=== PATIENT | female | born 1940 | race Caucasian/White ===

== ENCOUNTER 2018-04-03 05:00 | Inpatient (IN) | payer MEDICARE, OTHER ==
[2018-04-03] MEDS ORDERED: hydrALAZINE 20 MG/ML VIAL SLOW IVP PRN (07:35)
[2018-04-03] MEDS ORDERED: Ondansetron PF 4 MG/2 ML Vial IVP PRN (07:35)
--- NOTE | 2018-04-03 08:34 | HP ---
HISTORY OF PRESENT ILLNESS: Agata Montiel is a 77-year-old female, who lives in [place]. She is transferred for [facility]. She states that for the 3 weeks, she has been having increased problems with GERD and yesterday had 5 to 6 bowel movements, had abdominal distention, presented to [facility]. There, she underwent evaluation and noted have normal PT and INR, normal urinalysis, normal troponin, essentially normal laboratories, normal renal function, normal lipase, and normal lactic acid. White count of 14, hemoglobin of 14. CAT scan revealed evidence of low-grade small bowel obstruction suggesting an intestinal hernia in the right perirectal region and large paxton hepatis node. Complex cystic mass in the left pelvis may be ovarian origin. Distended gallbladder with gallstones. The gallbladder was noted to be mildly distended with few calcified stones. The paxton hepatis node measured 1.5 to 2 cm. There was noted to be a few differential air-fluid levels noted in the mildly distended loops of proximal small bowel measuring up to 3.1 cm with dilated small bowel extending into the pelvis with relatively decompressed small bowel, posterior to the urinary bladder and vagina. The patient eventually stated a week ago, the patient underwent a bowel prep for colonoscopy and tolerated the bowel prep well. She presented for colonoscopy, but was noted to be in what sounds to be atrial fibrillation. She was sent to Dr. Lagunas's office in [place], where she underwent an echocardiogram, the results of which were unknown. She was started on Eliquis. She has a followup to see him in 2 weeks. She states there were plans to do a cardiac stress test. She denies chest pain. ALLERGIES: NONE. SOCIAL HISTORY: Tobacco, none. Alcohol, occasionally she will drink a beer. MEDICATIONS: 1. Fosamax. 2. Amlodipine 2.5 mg a day. 3. Eliquis 2.5 mg. 4. Aspirin 81 mg. 5. Carvedilol 25 mg. 6. Lisinopril 20 mg. 7. Amitiza 24 mcg capsule twice a day with meals. PAST SURGICAL HISTORY: Total abdominal hysterectomy without oophorectomy, appendectomy, foot surgery. Never has had a colonoscopy, but did have a prep one last week noting the above occurrences. PAST MEDICAL HISTORY: Atrial fibrillation, hypertension. Atrial fibrillation, recently diagnosed. Echocardiogram last week in [place], results unknown. To see Dr. Lagunas in the next couple of weeks. REVIEW OF SYSTEMS: Noncontributory. PHYSICAL EXAMINATION: HEENT: The patient has an NG tube in place. LUNGS: Clear to auscultation. CARDIAC: Regular rate and rhythm without murmur or gallop. ABDOMEN: Soft, distended. Slightly tympanitic, nontender. EXTREMITIES: Unremarkable. LABORATORY DATA: Laboratories from [place], urinalysis unremarkable. Glucose 171, BUN 20, creatinine 0.96, sodium 133, potassium 4.3, chloride 96, carbon dioxide 26, calcium 10.1, bilirubin 0.8, alkaline phosphatase 82, SGOT AST 29, SGPT ALT 28, and albumin 3.9. Lipase 7. Lactic acid 1.7. White count 14.8, hemoglobin 14.6, hematocrit 43.3, and platelet count 364,000. ASSESSMENT AND PLAN: 1. History and exam probably more consistent with gastroenteritis. The patient had diarrhea for the last week. She has been having increasing gastroesophageal reflux disease for the last 3 weeks. We would recommend repeat abdominal x-ray, small bowel follow-through, PPIs and further recommendation will be based on small bowel follow-through and clinical course. 2. Recent diagnosis of atrial fibrillation, on Eliquis, having had an echocardiogram last week in Dr. Lagunas's office in [place]. Results pending. She has an appointment to see him in 2 weeks. We would consult Cardiology this week for followup and echocardiogram results. 3. Hypertension. 4. Gastroesophageal reflux disease. 5. History urinary tract infections, has had 2 rounds of antibiotics for that. Repeat urine culture. Job ID: [id number]
--- NOTE | 2018-04-03 08:56 | ULT ---
PELVIC ULTRASOUND: DATE: 04/03/2018. HISTORY: Left adnexal mass seen on CT examination obtained at an outside institution. COMPARISON: None available. FINDINGS: The uterus is not visualized consistent with patient's reported history of a prior hysterectomy. Only transabdominal imaging was performed, and the right ovary is not visualized. There is an anechoic cystic-appearing structure seen within the left adnexal region measuring 6 cm x 4.3 cm x 4.3 cm. A normal-appearing left ovary is not visualized. The exact origin is uncertain, bu t this may be ovarian in origin. No free fluid is seen in the pelvis. A Rae catheter is present within a decompressed urinary bladder. IMPRESSION: 1. Limited examination as only transabdominal imaging was performed. However, there is a cystic-naheed earing structure within the left adnexal region measuring 6 cm in greatest dimensions. This may pote ntially be ovarian in origin. Direct comparison with the prior CT scan examination would be helpful. Gynecological consultation is also recommended. 2. Hysterectomy. 3. Nonvisualization of the right ovary. POS: JULIET
[2018-04-03] MEDS ORDERED: MD-Gastroview 120 ML BOT ONE (10:20)
[2018-04-03 11:49] VITALS: BMI 21.7
[2018-04-03] MEDS: Pantoprazole 40 MG VIAL IVP SCH (12:04)
[2018-04-03] MEDS ORDERED: Alendronate Sodium 70 mg Tablet PO SCH (12:30)
[2018-04-03] MEDS: Sodium Chloride 0.9% 1,000 ML IV SCH ×2 (12:53→17:48)
[2018-04-03] MEDS ORDERED: Carvedilol 25 MG TAB PO SCH (13:00)
[2018-04-03] MEDS ORDERED: Lisinopril 20 MG TAB PO SCH (13:00)
[2018-04-03] MEDS ORDERED: Amlodipine 5 MG TAB PO SCH (13:00)
--- NOTE | 2018-04-03 15:16 | RAD ---
2 VIEWS ABDOMEN: Date: 04/03/18 HISTORY: Evaluate for small bowel obstruction. COMPARISON: None. FINDINGS: There are multiple air-filled distended loops of small bowel with differential air fluid levels. No p neumoperitoneum. Nasogastric tube terminates in the left upper quadrant. There is evidence of right-sided pleural effusion with adjacent parenchymal changes. There appears to be contrast in the left and right intrarenal collecting systems. Correlate for recen t contrast administration. IMPRESSION: 1. Possible small bowel obstruction. 2. Evidence for recent contrast administration. Correlate clinically. POS: [facility]
--- NOTE | 2018-04-03 15:28 | RAD ---
SMALL BOWEL FOLLOW THROUGH: Date: 04/03/18 HISTORY: Small bowel obstruction. COMPARISON: Abdomen same date. FINDINGS: Patient was given contrast through the enteric tube. Contrast seen transiting throughout the small shankar wel and through the large bowel and into the rectum by 2.5 hours. IMPRESSION: No evidence for high grade obstruction. POS: VIBHA
--- NOTE | 2018-04-03 15:30 | DIS ---
DATE OF ADMISSION: 04/03/2018 DATE OF DISCHARGE: 04/03/2018 HISTORY: Agata Montiel admitted from [place] early this morning with a diagnosis of bowel obstruction. At this hospitalization, she was admitted, underwent small-bowel follow-through, Gastrografin traversing the colon within an hour and she had multiple bowel movements. NG tube was removed. She was transferred with a Rae catheter that also will be removed. Review of the patient's CAT scan from [place] reveals that she has right hepatic lobe metasteses, 2 large metastases. She has a nodule in her small-bowel mesentery. She has omental changes consistent with metastatic, probably gynecological disease. She has greater than 5 cm mass in her left ovary/adnexa. Pelvic ultrasound here did not reveal any changes. This mass in her left ovary is soft tissue, solid density. The patient of interest because of abdominal bloating and discomfort, generalized, underwent a screening colonoscopy bowel prep last week, but at the time she presented for colonoscopy, she was found to be in atrial fibrillation, although rate controlled. Her procedure was canceled and she saw Dr. Lagunas, Cardiology in [place]. Echocardiogram performed there, results are pending. Dr. Lagunas has been asked to see her at this hospitalization and report placed on the chart for transfer. The patient does not have any symptoms of cardiac disease. CA-19-9 and 125 levels are pending. HOME MEDICATIONS: 1. Fosamax. 2. Amlodipine. 3. Eliquis. 4. Aspirin. 5. Carvedilol. 6. Lisinopril. 7. Amitiza. PAST SURGICAL HISTORY: Total abdominal hysterectomy without oophorectomy, appendectomy, and foot surgery. She has never had a colonoscopy, canceled last week due to AFib, started on Eliquis, last dose yesterday, Tuesday morning or Tuesday night. PAST MEDICAL HISTORY: Newly diagnosed atrial fibrillation, hypertension. Echocardiogram last week at [place], results are pending. Dr. Lagunas, Cardiology consulted and results are pending. HOSPITAL COURSE: The patient admitted. Eliquis was held. Small-bowel follow-through was normal. NG tube removed. Rae removed. Full liquids ordered. ASSESSMENT AND PLAN: It is my feeling that she has may be partial bowel obstruction, although when she presented, she was having loose stools, although not voluminous. She was having bowel movements after small-bowel follow-through. We have advanced her diet. Transferred to Dr. Carmel Lino, [place], for partial bowel obstruction, gynecological metastatic malignancy, and evaluation. CEA level normal, but CA-125 and 19-9 pending. Laboratories from [place] will be included as well as CD-ROM of her CAT scan. Laboratories from [place] noting glucose of 171, BUN 20, creatinine 0.96, sodium 133, potassium 4.3, and carbon dioxide 26. Liver function tests normal. Lipase 7. Lactate 1.7. White count 14, hemoglobin 14, and platelet count 364,000. Of note is that she had gallstones seen on her CAT scan, these were probably incidental note, and apparently she is asymptomatic from this standpoint. Job ID: [id number]
--- NOTE | 2018-04-03 19:00 | CON ---
DATE OF CONSULTATION: 04/03/2018 REASON FOR CONSULTATION: Atrial fibrillation. HISTORY OF PRESENT ILLNESS: Ms. Montiel is a 77-year-old woman, who was evaluated in the office last week. She was seen as an urgent walk-in. She was scheduled for an EGD, colonoscopy by Dr. Richard Rabago. This was a routine screening. She was found to be in new onset atrial fibrillation. She was seen and evaluated. At that time, she had no current symptoms suggesting angina. Echo Doppler suggested normal LVEF. She was placed on Eliquis. She re-presented with abdominal discomfort. She was found to have a small-bowel obstruction and likely new diagnosis of neoplasm. PAST MEDICAL HISTORY: Hysterectomy. ALLERGIES: NONE. HOME MEDICATIONS: Include, 1. Eliquis. 2. Alendronate. 3. Amlodipine. 4. Lisinopril. 5. Coreg. REVIEW OF SYSTEMS: Ten-point review of systems reviewed and is otherwise negative. PHYSICAL EXAMINATION: GENERAL: Patient is a pleasant female, who is in no acute distress. The patient appears their stated age. VITAL SIGNS: Blood pressure 130/79, pulse ox 97, temp 97.7. NEUROLOGIC: The patient is alert and oriented x3 with no focal neurologic deficits. HEENT: Sclerae without icterus. Mouth has moist mucous membranes with normal pallor. NECK: No JVD. Carotid upstroke brisk. No bruits bilaterally. LUNGS: Clear to auscultation with unlabored respirations. BACK: No scoliosis or kyphosis. CARDIAC: Irregularly irregular. ABDOMEN: Soft, nontender, nondistended. No peritoneal signs present. No hepatosplenomegaly. No abnormal striae. EXTREMITIES: 2+ femoral and 2+ dorsalis pedis pulses. No cyanosis, clubbing, or edema. SKIN: No gross abnormalities. LABORATORY DATA: CEA 0.87. Other labs are pending. IMPRESSION: 1. Atrial fibrillation. 2. New diagnosis of neoplasm, unknown etiology. RECOMMENDATIONS: At this point, I would place her on outpatient medications. We will hold Eliquis and place the Lovenox until a decision is made on how to treat. At this point, she will be transferred to the [facility] in the [place]. Otherwise, I have no recommendations. Job ID: [id number]
[2018-04-03] MEDS: Carvedilol 25 MG TAB PO SCH (21:04)
[2018-04-03] MEDS: Lisinopril 20 MG TAB PO SCH (21:04)
[2018-04-04 05:40] LABS: #Lymphocytes 1.3 thou/uL (1.20-3.40); #Monocytes 0.9 thou/uL (0.11-0.59); #Neutrophils 9.5 thou/uL (1.40-6.50); %Basophils 0.1 % (0.0-1.0); %Eosinophils 0.3 % (0.0-10.0); %Lymphocytes 10.9 % (21.0-51.0); %Monocytes 7.8 % (0.0-10.0); %Neutrophils 80.9 % (42.0-75.0); Hemoglobin 12.8 g/dL (12.0-16.0); Mean Corpuscular HGB CONC 33.1 g/dL (32.0-36.0); Mean Corpuscular Hemoglobin 31.3 pg (27.0-31.0); Mean Corpuscular Volume 94.4 fL (78.0-98.0); Mean Platelet Volume 7.9 fL (7.4-10.4); Platelet Count 289 thou/uL (130-400); RBC Distribution Width 11.2 % (11.5-14.5); Red Blood Cell (RBC) Count 4.09 mill/uL (4.20-5.40); White Blood Cell (WBC) Count 11.8 thou/uL (4.8-10.8)
[2018-04-04 06:10] LABS: ALT (SGPT) 18 U/L (8-55); AST (SGOT) 19 U/L (5-34); Albumin 3.3 g/dL (3.4-4.8); Alkaline Phosphatase 61 U/L (40-150); Anion Gap 9 mmol/L (10-20); BUN (Urea Nitrogen) 33 mg/dL (9.8-20.1); Bilirubin, Total 0.6 mg/dL (0.2-1.2); Calc. Creatinine Clearance 52 mL/min (70-130); Carbon Dioxide 27 mmol/L (23-31); Chloride 106 mmol/L (98-107); Estimated GFR-MDRD 70; Globulin 2.7 g/dL (2.4-3.5); Glucose 96 mg/dL (83-110); Potassium 3.3 mmol/L (3.5-5.1); Sodium 139 mmol/L (136-145)
--- NOTE | 2018-04-04 08:01 | PDOC.CTH ---
Cardiology Progress Note - Subjective No changes overnight - Objective Vital Signs Temp Pulse Resp BP BP Pulse Ox 04/04/18 03:59 98.3 F 91 18 109/55 L 94 L 04/04/18 00:00 98.4 F 89 18 100/55 L 92 L 04/03/18 21:04 129/73 Weight 126 lb 4 oz 04/03/18 04/04/18 04/05/18 06:59 06:59 06:59 Intake Total 300 Output Total 200 Balance 100 - Physical Examination General/Neuro: alert & oriented x3, NAD Neck: no JVD present Heart: other: (irr) - Labs Result Diagrams: 04/04/18 04:46 04/04/18 04:46 - Assessment/Plan afib Abdominal neoplasm HTN Rate appears controlled. Lovenox for now until disposition on surgery or adjuvant treatment
[2018-04-04] MEDS ORDERED: Citrucel 500 MG TAB PO SCH (09:00)
[2018-04-04] MEDS ORDERED: Enoxaparin Sodium 60 MG/0.6 ML SYRINGE SC SCH ×3 (09:00→21:00)
[2018-04-04] MEDS ORDERED: Amlodipine 5 MG TAB PO SCH (09:00)
[2018-04-04] MEDS ORDERED: Calcium Carbonate + Vit D 1 TAB PO SCH (09:00)
[2018-04-04] MEDS ORDERED: Polyethylene Glycol 3350 17 GM Packet PO SCH (09:00)
[2018-04-04] MEDS: Lisinopril 20 MG TAB PO SCH (09:09)
[2018-04-04] MEDS: Carvedilol 25 MG TAB PO SCH (09:09)
[2018-04-04] MEDS: Pantoprazole 40 MG VIAL IVP SCH (09:13)
[2018-04-04 15:50] VITALS: BP 119/71; TEMP 97.8
--- NOTE | 2018-04-05 15:28 | EKG ---
Test Reason : Blood Pressure : / mmHG Vent. Rate : 091 BPM Atrial Rate : 085 BPM P-R Int : 000 ms QRS Dur : 068 ms QT Int : 356 ms P-R-T Axes : 000 022 024 degrees QTc Int : 437 ms Atrial fibrillation Low voltage QRS Cannot rule out Anterior infarct , age undetermined Abnormal ECG Confirmed by RICARDO LISA, ROBYN ([id number]), communications editor VASQUEZ MAR ([id number]) on 04/05/2018 3:28:11 PM Referred By: Confirmed By:ROBYN SILVA MD
== END 2018-04-04 16:19 | disposition short-term general hospital (02) | DRG 755 ==
LOC: ERS 05:00 → 2SE 10:20 → 2NO 04-04 14:12
PROVIDERS: ADMIT Specialist; ATTEND Specialist
DX: C57.4 Malignant neoplasm of uterine adnexa, unspecified (principal); C78.7 Secondary malignant neoplasm of liver and intrahepatic bile duct; C78.6 Secondary malignant neoplasm of retroperitoneum and peritoneum; K21.9 Gastro-esophageal reflux disease without esophagitis; I48.91 Unspecified atrial fibrillation; I10 Essential (primary) hypertension; Z87.440 Personal history of urinary (tract) infections; Z90.710 Acquired absence of both cervix and uterus; Z79.01 Long term (current) use of anticoagulants; Z79.82 Long term (current) use of aspirin
CPT/HCPCS: 36415; 74019; 74250; 76856; 80053; 82378; 85025; 86301; 86304; 93005; 93976; C9113; J1650

== ENCOUNTER 2018-04-27 07:28 | Outpatient (CLI) | payer MEDICARE, OTHER ==
--- NOTE | 2018-04-27 09:26 | CT ---
CT CHEST AND ABDOMEN AND PELVIS WITH CONTRAST: Multiple axial tomograms were obtained through the chest, abdomen, and pelvis with IV enhancement. INDICATION: Primary peritoneal adenocarcinoma recently diagnosed. Exam performed for staging. COMPARISON: There are no comparison studies. FINDINGS: CT CHEST: There is a large right pleural effusion and small left pleural effusion. There is compressive atelec tasis at the right middle lobe and right lower lobe. No evidence of mediastinal or hilar mass. The portions of both lungs appear clear. The bony thorax appears unremarkable. IMPRESSION: Large right pleural effusion with compressive atelectasis of the right lung as described. Small left pleural effusion. CT ABDOMEN AND PELVIS: There is small to moderate volume ascites with fluid seen surrounding the liver and spleen and radiat ing down the colonic gutters. There is evidence of loculated ascitic fluid just posterior to the ant erior abdominal wall in the mid and lower abdomen which appears extraperitoneal. There are focal heterogeneous lesions involving the liver consistent with liver metastasis. At least 3 lesions are identified in the inferior right lobe, each measuring 2-3 cm. There are other smaller lesions apparent. The spleen and pancreas are unremarkable. There is mild dilatation of proximal mid small bowel loops in the left abdomen. The more distal smal l bowel loops appear normal caliber. Scattered stool throughout the colon. Diverticulosis of the si gmoid. Images through the pelvis reveal evidence of hysterectomy. There is a cystic mass in the left pelvis measuring 5 cm diameter. There is a solid heterogeneous component along the inferior margin of this mass possibly represent the ovarian neoplasm. There is a 2nd circumscribed cystic mass in the lower pelvis to the right of midline abutting the ant erior wall of the rectum which measures 4.3 cm in the axial plane. There is a linear fluid-filled st ructure connecting to this loculated collection adjacent to the cecum. The patient reportedly is sta tus post appendectomy. This most likely represents a loculated fluid collection. There is a tiny focus of free air seen which is in the deep pelvis to the left of midline in the spac e of Retzius adjacent to the anterior wall of the bladder which is extraperitoneal in location. There is retroperitoneal adenopathy with multiple paraaortic nodes measuring 1-1.5 cm. Osseous structures unremarkable. IMPRESSION: 1. Small volume ascites. 2. Loculated fluid along the anterior abdominal wall which appears to be extraperitoneal. There is a tiny free pocket of gas which is extraperitoneal in the space of Retzius in the lower pelvis to the left of midline. Has there been recent procedure to this location? 3. A partially cystic complex mass in the left pelvis measuring up to 5 cm suggesting ovarian neopla sm. 4. A loculated fluid density collection in the deep pelvis to the right of midline as described abov e. 5. Numerous liver lesions consistent with liver metastasis. 6. Retroperitoneal adenopathy 7. Mild dilatation proximal small bowel POS: [facility]
== END 2018-04-27 07:29 | disposition home or self-care (01) ==
LOC: BICCT 07:28
PROVIDERS: ATTEND Internal Medicine Hematology & Oncology
DX: C48.1 Malignant neoplasm of specified parts of peritoneum (principal); J98.11 Atelectasis; J90 Pleural effusion, not elsewhere classified; R18.8 Other ascites; R59.0 Localized enlarged lymph nodes; K76.9 Liver disease, unspecified; N94.9 Unspecified condition associated with female genital organs and menstrual cycle
CPT/HCPCS: 71260; 74177

== ENCOUNTER 2018-04-27 12:47 | Inpatient (IN) | payer MEDICARE, OTHER ==
[2018-04-27] MEDS ORDERED: Nitroglycerin 2% Ointment 1 INCH/1 GM Packet ONE (13:04)
[2018-04-27] MEDS ORDERED: Furosemide 40 MG/4 ML VIAL ONE (13:04)
--- NOTE | 2018-04-27 13:25 | RAD ---
PORTABLE CHEST 1 VIEW: DATE: 04/27/2018. TIME: 1:04 p.m. HISTORY: Dyspnea. FINDINGS/IMPRESSION: There is a small left and a large right pleural effusion. The heart size is borderline. There is ev idence of old granulomatous disease. No pneumothoraces are seen. POS: OFF
[2018-04-27 14:12] LABS: #Lymphocytes 0.6 thou/uL (1.20-3.40); #Monocytes 0.5 thou/uL (0.11-0.59); #Neutrophils 7.7 thou/uL (1.40-6.50); %Basophils 0.5 % (0.0-1.0); %Eosinophils 0.1 % (0.0-10.0); %Lymphocytes 7.1 % (21.0-51.0); %Monocytes 5.9 % (0.0-10.0); %Neutrophils 86.4 % (42.0-75.0); Hemoglobin 12.6 g/dL (12.0-16.0); Mean Corpuscular HGB CONC 31.8 g/dL (32.0-36.0); Mean Corpuscular Hemoglobin 29.1 pg (27.0-31.0); Mean Corpuscular Volume 91.5 fL (78.0-98.0); Mean Platelet Volume 7.2 fL (7.4-10.4); Platelet Count 434 thou/uL (130-400); RBC Distribution Width 11.6 % (11.5-14.5); Red Blood Cell (RBC) Count 4.33 mill/uL (4.20-5.40); White Blood Cell (WBC) Count 8.9 thou/uL (4.8-10.8)
[2018-04-27 14:14] LABS: ALT (SGPT) 21 U/L (8-55); AST (SGOT) 25 U/L (5-34); Albumin 3.1 g/dL (3.4-4.8); Alkaline Phosphatase 81 U/L (40-150); Anion Gap 15 mmol/L (10-20); BUN (Urea Nitrogen) 22 mg/dL (9.8-20.1); Bilirubin, Total 0.6 mg/dL (0.2-1.2); CK (CPK) 51 U/L (29-168); Calc. Creatinine Clearance 0 mL/min (70-130); Calcium 8.9 mg/dL (7.8-10.44); Carbon Dioxide 26 mmol/L (23-31); Chloride 95 mmol/L (98-107); Estimated GFR-MDRD 82; Globulin 3.3 g/dL (2.4-3.5); Glucose 136 mg/dL (83-110); Lipase 5 U/L (8-78); Potassium 3.5 mmol/L (3.5-5.1); Protein, Total 6.4 g/dL (6.0-8.3); Sodium 132 mmol/L (136-145)
[2018-04-27 14:18] LABS: Bilirubin Negative (Negative); Blood, Urine Small (Negative); Clarity CLEAR (Clear); Glucose, Urine (Dipstick) Negative (Negative); Leukocyte Negative (Negative); Nitrite Negative (Negative); Protein, Urine (Dipstick) Trace mg/dL (Neg-Trace); Urobilinogen 0.2 mg/dL (0.2-1.0); pH, Urine 5.5 (5.0-9.0)
[2018-04-27 14:20] LABS: Bacteria/HPF None Seen HPF (None Seen); Pathc Cast-AUWi Flag 2.32 (0-2.49); Squamous Epithelial 0-3 HPF (0-3)
[2018-04-27 14:34] LABS: Crystals/HPF RARE CA OXALATE HPF (Negative)
[2018-04-27 14:35] LABS: Hyaline Casts/LPF 0-3 HYALINE CAST LPF (0-3 Hyaline); Renal Epithelial None Seen HPF (0-3); Transitional Epithelial NONE SEEN HPF (0-3)
[2018-04-27 14:42] LABS: Specific Gravity, Urine Greater than 1.060 (1.002-1.036)
[2018-04-27] MEDS ORDERED: Acetaminophen 325 MG TAB PO PRN (16:04)
[2018-04-27] MEDS ORDERED: Ondansetron PF 4 MG/2 ML Vial IVP PRN (16:04)
[2018-04-27] MEDS ORDERED: Bisacodyl 5 MG TAB PO PRN (16:04)
--- NOTE | 2018-04-27 16:12 | PDOC.EVN ---
Event Note - Event Note Event Note: H&P dictated [id number]
[2018-04-27 17:06] LABS: Troponin I 0.017 ng/mL (< 0.028)
[2018-04-27 20:00] LABS: Troponin I 0.024 ng/mL (< 0.028)
[2018-04-27] MEDS: Apixaban 2.5 MG TAB PO SCH (20:23)
[2018-04-27] MEDS: Carvedilol 25 MG TAB PO SCH (20:23)
--- NOTE | 2018-04-27 22:51 | HP ---
ADMITTING COMPLAINT: Sent from [employer]'s office. HISTORY OF PRESENT ILLNESS: This is a 77-year-old female, who was recently diagnosed with small-bowel obstruction and during surgical procedure was found to have an ovarian mass, was discharged on 04/10 and has had an evaluation by General Surgery, Oncology, and Cardiology. In the meantime, the patient was supposed to get a CT scan of her abdomen contrast and pelvis today and had a followup appointment with her [employer] analyst. The patient's Cardiology PA apparently found that the patient was found to have significant volume overload and sent the patient to the hospital. In the ER, the patient currently states that she does feel short of breath and is unable to perform her activities, also notes that she has had bilateral lower swellings of her legs, which have been worsening in the last week. The patient states that, otherwise, she has no other complaints or issues. ALLERGIES: TO HYDROCHLOROTHIAZIDE, NITROFURANTOIN, AND TRIAMTERENE. MEDICATIONS: See MAR. FAMILY HISTORY: Noncontributory. SOCIAL HISTORY: Nondrinker and nonsmoker. PAST MEDICAL HISTORY: Small-bowel obstruction, hypertension, and atrial fibrillation. REVIEW OF SYSTEMS: All systems reviewed. Pertinent positives in HPI, otherwise negative. PHYSICAL EXAMINATION: VITAL SIGNS: Blood pressure is 91/75, respiratory rate of 18, temperature is 98, and heart rate irregularly irregular at 110. GENERAL: The patient appears in mild discomfort. HEENT: Pupils are equal, round, and reactive to light and accommodation. Oral cavity moist and pink. Extraocular muscles intact. NECK: Supple, nontender, mobile. Thyroid appreciated. PULMONARY: Decreased breath sounds in bilateral lower lung li. Moderate respiratory distress. No increase in AP diameter. CARDIOVASCULAR: Irregularly irregular rhythm. 2/6 systolic ejection murmur appreciated. ABDOMEN: Distended. Mild fluid wave noted. Positive bowel sounds. EXTREMITIES: 2+ peripheral pulses noted. Bilateral lower extremity 1+ edema noted. NEUROLOGIC: Cranial nerves 2 through 12 intact. No loss of motor or sensory function. LABORATORY DATA: CBC within normal limits. BMP shows sodium of 132, chloride of 95, and glucose elevated at 136. Brain natriuretic peptide at 422, otherwise normal. Urinalysis positive for trace ketones and trace blood. ASSESSMENT: 1. Volume overload. 2. Ovarian carcinoma. 3. Atrial fibrillation. 4. Congestive heart failure. PLAN: 1. At this point in time, we will admit the patient to observation and consult Cardiology. 2. The patient stated that she had an echocardiogram performed at her [employer] analyst's office. We will refrain from ordering a repeat one as the recent one was done, unclear if the patient actually has a right-sided heart failure or if she has volume overload secondary to another etiology. We will obtain urinalysis and liver function test to rule out any other possibilities of causing heart failure. UA does not show positivity for protein, and liver function test appears to be intact. Thus, this is likely volume overload of a cardiogenic nature. We will await Cardiology input. 3. We will hold on for any diuretics as the patient's blood pressure is significantly low. 4. Continue Eliquis and continue Coreg; however, we will stop lisinopril and Norvasc, edema may also be a side effect from the Norvasc. 5. At this point in time, if the patient is stable in a.m., edema resolves, and the symptom then improves clinically, can possibly be discharged with diuretic outpatient and to follow up with her outpatient PCP. Case and plan discussed with the patient and family at length. They understand and agree with this plan. Job ID: [id number]
[2018-04-28 06:08] LABS: #Lymphocytes 1.1 thou/uL (1.20-3.40); #Monocytes 0.8 thou/uL (0.11-0.59); #Neutrophils 7.3 thou/uL (1.40-6.50); %Basophils 0.2 % (0.0-1.0); %Eosinophils 0.4 % (0.0-10.0); %Lymphocytes 12.1 % (21.0-51.0); %Monocytes 8.3 % (0.0-10.0); Hemoglobin 11.4 g/dL (12.0-16.0); Mean Corpuscular HGB CONC 32.3 g/dL (32.0-36.0); Mean Corpuscular Hemoglobin 29.7 pg (27.0-31.0); Mean Corpuscular Volume 92.1 fL (78.0-98.0); Mean Platelet Volume 7.5 fL (7.4-10.4); Platelet Count 410 thou/uL (130-400); RBC Distribution Width 11.7 % (11.5-14.5); Red Blood Cell (RBC) Count 3.82 mill/uL (4.20-5.40); White Blood Cell (WBC) Count 9.2 thou/uL (4.8-10.8)
[2018-04-28 06:27] LABS: Anion Gap 14 mmol/L (10-20); BUN (Urea Nitrogen) 22 mg/dL (9.8-20.1); Calc. Creatinine Clearance 68 mL/min (70-130); Calcium 8.6 mg/dL (7.8-10.44); Carbon Dioxide 26 mmol/L (23-31); Chloride 98 mmol/L (98-107); Estimated GFR-MDRD 88; Glucose 101 mg/dL (83-110); Potassium 3.4 mmol/L (3.5-5.1); Sodium 135 mmol/L (136-145)
[2018-04-28] MEDS: Carvedilol 25 MG TAB PO SCH ×2 (09:15→22:23)
[2018-04-28] MEDS: Apixaban 2.5 MG TAB PO SCH ×2 (09:16→13:15)
[2018-04-28] MEDS ORDERED: Carvedilol 25 MG TAB PO SCH ×2 (12:59→13:15)
--- NOTE | 2018-04-28 13:02 | PDOC.PN ---
- Subjective Encounter Start Date: 04/28/18 Encounter Start Time: 13:00 Patient seen and examined, states she still feels a bit SOB and has not had any changes in her symptoms, at bedside, all questions answered. - Objective Vital Signs & Weight: Vital Signs (12 hours) Temp Pulse Resp BP Pulse Ox 04/28/18 11:57 97.9 F 100 14 98/61 96 04/28/18 08:00 97.7 F 100 16 112/66 97 04/28/18 04:22 97.8 F 110 H 22 H 140/77 94 L 04/28/18 02:46 96 Weight Weight 135 lb 14.4 oz I&O: 04/27/18 04/28/18 04/29/18 06:59 06:59 06:59 Intake Total 0 50 Output Total 450 500 Balance -450 -450 Result Diagrams: 04/28/18 05:08 04/28/18 05:08 Phys Exam - Physical Examination Constitutional: NAD HEENT: PERRLA, moist MMs, sclera anicteric Neck: no nodes, no JVD, supple Respiratory: no wheezing, no rales, no rhonchi decreased breath sounds B/L Lower lung li Cardiovascular: no rub, irregular 2/6 CARLOS Gastrointestinal: soft, non-tender, no distention Musculoskeletal: pulses present, edema present (1+ pitting edema B/L LE) Neurological: non-focal, normal sensation Dx/Plan (1) SOB (shortness of breath) Code(s): R06.02 - SHORTNESS OF BREATH Status: Acute (2) Diastolic CHF Code(s): I50.30 - UNSPECIFIED DIASTOLIC (CONGESTIVE) HEART FAILURE Status: Acute (3) Volume overload Code(s): E87.70 - FLUID OVERLOAD, UNSPECIFIED Status: Acute (4) Pulmonary congestion Code(s): R09.89 - OTH SYMPTOMS AND SIGNS INVOLVING THE CIRC AND RESP SYSTEMS Status: Acute (5) Ovarian cancer Status: Acute - Plan * cardio evaluation pending, out patient Echo read, EF normal, however, patient has diastolic dysfunction as well as MR/TR and right ventricular dysfunction * will start lasix for now, will monitor BP closely * labs in AM * patient requiring O2 via NC for respiration thus will start diuretic, will hold if SBP < 100mmHg * no other changes in plan of care * will await subspecialists input * change to inpatient * case and plan d/w patient and at length, they understand and agree with this plan.
[2018-04-28] MEDS ORDERED: Furosemide 40 MG/4 ML VIAL ONE (13:09)
[2018-04-28] MEDS: Furosemide 20 MG/2 ML VIAL SLOW IVP SCH (13:14)
[2018-04-28] MEDS ORDERED: Potassium Chloride 20 MEQ TAB PO SCH ×2 (13:15→14:00)
[2018-04-28] MEDS ORDERED: Furosemide 20 MG/2 ML VIAL SLOW IVP SCH (14:00)
--- NOTE | 2018-04-28 20:49 | CON ---
DATE OF CONSULTATION: TYPE OF CONSULTATION: Cardiology consultation. PRIMARY CARE DOCTOR: Dr. Jill Espinoza. PRIMARY [employer] SALES REPRESENTATIVE: Dr. Lagunas. REASON FOR CARDIOLOGY CONSULTATION: Fluid overload. HISTORY OF PRESENT ILLNESS: Ms. Montiel is a very pleasant 77-year-old female with a significant history of hypertension and chronic atrial fibrillation, and ovarian carcinoma with status post resection three weeks ago. The patient has seen Dr. Lagunas for chronic atrial fibrillation. The patient was doing well. Last time the patient was seen by the Dr. Lagunas in March of 2018. Over the three weeks, she has gained 15 pounds and worsening of shortness of breath and worsening of the edema in the bilateral lower extremities. She follows up with Dr. Lagunas's PA, Kel, and she was recommended to present to the emergency department for further evaluation and treatment. In the ER, the patient received Lasix 40 mg IV push, which improved her breathing and she states her leg is less swelled today; however, according to the patient's family member, she is still having shortness of breath especially when she talks. Prior to this event, she never had any chest pain or discomfort in her chest, fluttering or palpitation in her chest, dizziness, lightheadedness, or any other cardiac complaints. The patient had an echocardiogram done on March 30, 2018, which shows EF 50% to 55%, difficulty to evaluate for diastolic dysfunction due to the atrial fibrillation and mitral valve regurgitation, mild tricuspid regurgitation, and moderate left atrial enlargement. PAST MEDICAL HISTORY: 1. Ovarian carcinoma and resection three weeks ago. 2. Hypertension. 3. Chronic atrial fibrillation with Eliquis 2.5 mg twice a day. PAST SURGICAL HISTORY: Ovarian carcinoma resection [place] weeks ago at [place]; appendectomy; and hysterectomy. FAMILY HISTORY: The patient's brother and sister has medical history of cardiovascular disease. The patient's daughter is taking some medication for tachycardia. SOCIAL HISTORY: She is living with her . Prior to the ovarian cancer resection, the patient was active. She used to walk around the house every day without any cardiac complaints. She denies smoking, EtOH, or illicit drug abuse. She drinks two cups of coffee a day. ALLERGIES: SHE STATES NO KNOWN DRUG ALLERGIES. HOME MEDICATIONS: 1. Eliquis 2.5 mg twice a day. 2. Carvedilol 25 mg twice a day. 3. Calcium with vitamin D 1 tablet once a day. 4. Lisinopril 20 mg twice a day. 5. MiraLAX 17 g daily. REVIEW OF SYSTEMS: A 12-point review of system negative unless otherwise mentioned in the HPI or below. The patient had intermittent pfvl-cn-bydpttys joint achiness and discomfort secondary to the arthritis and the patient has an intermittent acid reflex. PHYSICAL EXAMINATION: VITAL SIGNS: Blood pressure 103/63, pulse 93, O2 saturations 96% with 2 L nasal cannula, respiratory rate 18, and temperature 97.9. GENERAL: The patient is alert and oriented x4. The patient is not in acute distress except for mild shortness of breath when she talk or movement. HEENT: Head, normocephalic and atraumatic. Eyes, extraocular muscle movement intact. ENT and mouth, oral and nasal mucosa are moist without lesion. NECK: Supple. Normal range of motion. No JVD. PULMONARY: Clear to auscultation bilaterally, but very diminished at the bilateral bases. CARDIOVASCULAR: Irregularly irregular. No S3 or S4. No murmurs, heaves, or thrill noted. 1+ pulses in bilateral lower extremities and 2+ in upper extremities. She has 2 to 3+ pitting edema in the lower extremities. Carotid pulses are present without bruit or thrill. ABDOMEN: Soft and nontender. Mo masses palpated. There are healed incision in the abdomen. Bowel sounds are positive. MUSCULOSKELETAL: The patient able to move all extremities. The patient denies any claudication. NEUROLOGIC: The patient is alert and oriented x4. Nonfocal. PSYCHIATRIC: The patient's mood is appropriate. LABORATORY DATA: WBC 9.2, hemoglobin 11.4, hematocrit 35.2, and platelets 410. Sodium 135, potassium 3.4, BUN 22, creatinine 0.65. BNP 422. Troponin is negative. AST 25, ALT 21. DIAGNOSTIC DATA: The patient's chest x-ray revealed small bilateral pleural effusion and evidence of old granulomatous disease. CT scan of the chest and abdomen shows small volume of ascites and partial cystic complex mass in the left pelvis suggesting of ovarian neoplasm. Numerous liver lesions consistent with liver metastases and retroperitoneal adenopathy and mild dilatation of proximal small bowel. ASSESSMENT AND PLAN: 1. Acute on diastolic heart failure. The patient's breathing has improved after the patient received one dose of Lasix IV. We would like to give her Lasix 20 mg IV push if her blood pressure is stable. 2. Chronic atrial fibrillation. The patient's heart rate is stable at this moment with Coreg, betablocker, and Eliquis 2.5 mg twice a day. We would like to continue to monitor. 3. Hypertension. Blood pressure tends to be hypotensive at this moment. We would like to decrease the carvedilol to 6.25 mg twice a day. Discontinue nitroglycerin paste and at this moment, if the patient's blood pressure tolerates, we would like to start the KORIN inhibitor for this patient. The patient's creatinine is stable at this moment. 4. Ovarian carcinoma. We would like to defer to the primary care doctor and Oncology Service. 5. Hypokalemia. The patient's potassium level was 3.4 since the patient is going to start receiving Lasix IV. We would like to start potassium 20 mEq every day. Thank you very much for allowing the Cardiology Service to participate in the care of this patient. We will follow along the patient's care team and make further evaluation as appropriate. Job ID: [id number]
[2018-04-28] MEDS ORDERED: Carvedilol 6.25 MG TAB PO SCH (21:00)
--- NOTE | 2018-04-28 22:28 | CON ---
DATE OF CONSULTATION: 04/28/2018 TYPE OF CONSULTATION: Cardiology INDICATION FOR CONSULTATION: A 77-year-old female with atrial fibrillation with rapid ventricular response and history of new onset congestive heart failure with a history of ovarian cancer, recently had small bowel resection due to an obstruction. She was at that time found to have ovarian cancer, which will need to be debulked with chemotherapy and then thus scheduled surgery in the future. She was admitted due to increased shortness of breath and edema. HISTORY OF PRESENT ILLNESS: This is a very unfortunate 77-year-old female, who has recently undergone resection of a small-bowel obstruction, was also found to have an ovarian mass, which was severely malignant, starting to undergo chemotherapy. She was admitted after she had been discharged from the hospital with lower extremity edema and shortness of breath. She has been having increasing shortness of breath, which she did not have in the future and this appears to be acute congestive heart failure, but may just be due to volume overload. She did have a normal echocardiogram I believe in the past with reasonable ejection fraction, but at this time, obviously has some degree of heart failure. Her BNP was not significantly elevated, however, was abnormal with BNP of 422. Her cardiac enzymes are negative for evidence of myocardial infarction. She denied any chest pain, but have shortness of breath. PAST MEDICAL HISTORY: Please refer to the notes dictated by my nurse practitioner, Diane Blunt. SOCIAL HISTORY: Please refer to the notes dictated by my nurse practitioner, Diane Blunt. FAMILY HISTORY: Please refer to the notes dictated by my nurse practitioner, Diane Blunt. REVIEW OF SYSTEMS: Please refer to the notes dictated by my nurse practitioner, Diane Blunt. MEDICATIONS: Please refer to the notes dictated by my nurse practitioner, Diane Blunt. PHYSICAL EXAMINATION: GENERAL: Reveals a well-developed, well-nourished female, who does appear to be ill. She is short of breath during my evaluation. VITAL SIGNS: Blood pressure is 103/63, heart rate is 93 to 100 which shows atrial fibrillation. She is afebrile. Respiratory rate is 14 to 18, O2 saturation is 96%. HEENT: Shows head to be normocephalic and atraumatic. Carotid pulses are present. I did not hear any bruits. Her chest had decreased breath sounds bilaterally. CARDIOVASCULAR: Reveals an irregularly irregular rhythm. I do not hear any gross murmurs at this time. ABDOMEN: Has evidence of recent surgery. She is somewhat full, is not tympanic, but appears to be dull to percussion and most likely appears to be ascites. Positive bowel sounds are present. EXTREMITIES: Showed 2+ lower extremity edema. Pedal pulses are difficult to palpate but are present. NEUROLOGIC: The patient appears to be intact. LABORATORY DATA: Again shows no evidence of myocardial infarction. BNP was 422, potassium was 3.4, sodium was 135. Hemoglobin was 11.4, WBC of 9.2, and platelet count of 410,000. IMPRESSION: Atrial fibrillation with rapid ventricular response, which may have provoked some degree of congestive heart failure with lower extremity edema. We will need to control the heart rate with her atrial fibrillation. Hope in the future, we will convert her back to sinus rhythm with a main thing at this time will be to control the heart rate. I will obtain a repeat echocardiogram at this time to see whether or not she has had any change in her left ventricular systolic function, which may be due to tachycardia induced cardiomyopathy or whether she may be just simply volume overloaded. This may be chronic atrial fibrillation. I am not sure whether she has had atrial fibrillation in the past or not, but she has been on Eliquis in the past, I believe this is not a new finding, but congestive heart failure is a new finding in this lady. She will need to undergo further diuresis and when she is more stable, then can be discharged to home on oral diuretics as well as continuing on her Eliquis which she has been on in the past and she will continue the Coreg at this time as well as lisinopril or KORIN inhibitor and other medications as needed for hypertension. ASSESSMENT AND PLAN: 1. Atrial fibrillation with rapid ventricular response as noted. 2. Ovarian cancer, which will be dealt with by the Oncology Service. She most likely will undergo chemotherapy and then likely surgical correction in the future or with oophorectomy. 3. History of hypertension. This is stable at this time. We will be more than happy to continue to follow the patient with you during this hospital course. Job ID: [id number]
--- NOTE | 2018-04-29 01:52 | HP ---
HISTORY OF PRESENT ILLNESS: Agata Montiel is a 77-year-old female, lives in [place]. She has serous cystadenocarcinoma, ovarian, abdominal cavity undergoing recent laparotomy by Dr. Carmel Lino in the [facility] onc[facility]. She prior to that was hospitalized at [facility], presented with a bowel obstruction, is seen by me. CAT scan of small-bowel follow-through revealed resolution of her bowel obstruction. Her white count returned to normal. She was transferred to Dr. Lino when her tumor markers suggested an ovarian primary with her ascites and omental tumor masses. She on arrival to the [facility] seem to be stable, but Dr. Carmel Lino operated on her for tissue diagnosis and found the terminal ileum to be ischemic, requiring ileocecectomy, anastomosis, and biopsies. She has been referred back for chemotherapy. I saw her in the office yesterday to arrange MediPort placement, which is scheduled for May 01 at 7:30 a.m. On admission, she is started on Eliquis, but this has been discontinued and can be resumed the day after surgery Tuesday. The patient is still slightly dyspneic and being diuresed and being moved from observation to inpatient status. I would recommend that if she is able to go home this , she can go home and that outpatient surgery is arranged for Tuesday. She should be n.p.o. after midnight Tuesday night except for medications with a sip of water. She should avoid anticoagulation between now and the time of her surgery. She should report the outpatient surgery at 6 a.m. On the other hand, if the patient is an inpatient and required hospitalization for medical problems, she does have orders placed for consent for MediPort, IV sedation, local anesthesia, and n.p.o. after midnight Hibiclens shower Tuesday and if we placed a MediPort on Tuesday, if she is stable from medical standpoint, she can go home postoperatively. This will be a medical assessment as to whether her MediPort is placed as an outpatient or inpatient based on her medical needs this weekend. Dr. Monte, who is covering this weekend, please, however, call me if there are any questions regarding her care. The patient has been instructed that if she is discharged home, she should report to the operating room outpatient surgery registration at 0600 on Tuesday. Job ID: [id number]
[2018-04-29] MEDS: Furosemide 20 MG/2 ML VIAL SLOW IVP SCH ×2 (06:35→16:44)
[2018-04-29] MEDS: Carvedilol 25 MG TAB PO SCH ×2 (10:54→21:34)
[2018-04-29] MEDS: Potassium Chloride 20 MEQ TAB PO SCH (10:54)
--- NOTE | 2018-04-29 13:23 | PDOC.PN ---
- Subjective Encounter Start Date: 04/29/18 Encounter Start Time: 13:22 Patient seen and examined, states she's feeling better from yesterday, all questions answered. - Objective Vital Signs & Weight: Vital Signs (12 hours) Temp Pulse Resp BP BP Pulse Ox 04/29/18 07:26 98.3 F 101 H 18 118/61 95 04/29/18 03:28 99.1 F 88 20 130/77 95 Weight Admit Weight 135 lb 14.4 oz Weight 133 lb 6.4 oz I&O: 04/28/18 04/29/18 04/30/18 06:59 06:59 06:59 Intake Total 0 450 300 Output Total 450 1100 500 Balance -450 -650 -200 Result Diagrams: 04/28/18 05:08 04/28/18 05:08 Phys Exam - Physical Examination Constitutional: NAD HEENT: PERRLA, moist MMs, sclera anicteric Neck: no nodes, no JVD, supple Respiratory: no wheezing, no rales, no rhonchi Cardiovascular: RRR, no significant murmur, no rub Gastrointestinal: soft, non-tender, no distention, positive bowel sounds Musculoskeletal: pulses present, edema present (trace) Dx/Plan (1) SOB (shortness of breath) Code(s): R06.02 - SHORTNESS OF BREATH Status: Acute (2) Diastolic CHF Code(s): I50.30 - UNSPECIFIED DIASTOLIC (CONGESTIVE) HEART FAILURE Status: Acute (3) Volume overload Code(s): E87.70 - FLUID OVERLOAD, UNSPECIFIED Status: Acute (4) Pulmonary congestion Code(s): R09.89 - OTH SYMPTOMS AND SIGNS INVOLVING THE CIRC AND RESP SYSTEMS Status: Acute (5) Ovarian cancer Status: Acute - Plan * cont with IV diuretics for now * DC plans in AM if patient is doing well, will give PO diuretics at point in time of discharge * will need to FU with oncology in 3-5 days post discharge
--- NOTE | 2018-04-29 22:46 | PDOC.CTH ---
Cardiology Progress Note - Subjective The pt seen and examined. No overnight events. No cardiac complaints. She cont. having CHAPMAN with small movement. - Objective Vital Signs Temp Pulse Resp BP Pulse Ox 04/29/18 16:44 93 134/66 97 04/29/18 13:15 97.9 F 92 20 120/74 98 Admit Weight 135 lb 14.4 oz Weight 133 lb 6.4 oz 04/28/18 04/29/18 04/30/18 06:59 06:59 06:59 Intake Total 0 450 300 Output Total 450 1100 1400 Balance -450 -650 -1100 - Physical Examination General/Neuro: alert & oriented x3 Neck: no JVD present Lungs: other: (diminished at bases ) Heart: other: (irregular ) Abdomen: soft Extremities: other: (No edema) - Telemetry Telemetry Rhythm: AFib - Labs Result Diagrams: 04/28/18 05:08 04/30/18 04:28 Troponin/CKMB Troponin I 0.010 ng/mL (< 0.028) 04/28/18 05:03 - Assessment/Plan 1. Acute on chronic diastolic HF - breathing is slightly better today. On Lasix IV BID and Coreg. Will start Lisinopril 5mg qd from tomorrow AM. 2. Chronic Afib - HR well controlled with Coreg. Brayden is on hold for now for Mediport placement on Tuesday. 3. Ovarian cancer - will need to FU with oncology in 3-5 days post discharge 4. HTN - stable MAR reviewed Pt. seen and eval. by me. I agree with the A/P by the TRAINING AND DEVELOPMENT HEAD. Chest : decr BS on right > 1/[address] up.. IRRR, + edema. Review of Systems - Review of Systems Constitutional: reports: weakness EENTM: reports: no symptoms reported Respiratory: reports: no symptoms reported Cardiac (ROS): reports: no symptoms reported ABD/GI: reports: no symptoms reported : reports: no symptoms reported Musculoskeletal: reports: no symptoms reported Skin: reports: no symptoms reported
[2018-04-30] MEDS: Furosemide 20 MG/2 ML VIAL SLOW IVP SCH (05:21)
[2018-04-30 05:47] LABS: Anion Gap 11 mmol/L (10-20); BUN (Urea Nitrogen) 25 mg/dL (9.8-20.1); Calc. Creatinine Clearance 63 mL/min (70-130); Calcium 8.3 mg/dL (7.8-10.44); Carbon Dioxide 32 mmol/L (23-31); Chloride 98 mmol/L (98-107); Estimated GFR-MDRD 82; Glucose 111 mg/dL (83-110); Sodium 138 mmol/L (136-145)
[2018-04-30] MEDS: Potassium Chloride 20 MEQ TAB PO SCH (08:32)
[2018-04-30] MEDS: Lisinopril 5 MG TAB PO SCH (08:32)
[2018-04-30] MEDS: Carvedilol 25 MG TAB PO SCH ×2 (08:32→20:34)
--- NOTE | 2018-04-30 11:06 | PDOC.PN ---
- Subjective Encounter Start Date: 04/30/18 Encounter Start Time: 11:05 Patient seen and examined, edema significantly improved, family at bedside, no other issues overnight, all questions answered. - Objective Vital Signs & Weight: Vital Signs (12 hours) Temp Pulse Resp BP BP BP Pulse Ox 04/30/18 08:32 104 H 128/79 04/30/18 08:30 98 04/30/18 08:23 97.5 F L 104 H 20 128/79 98 04/30/18 03:30 98.8 F 91 24 H 137/83 97 Weight Admit Weight 135 lb 14.4 oz Weight 126 lb 12.8 oz I&O: 04/29/18 04/30/18 05/01/18 06:59 06:59 06:59 Intake Total 450 650 Output Total 1100 1750 Balance -650 -1100 Result Diagrams: 04/28/18 05:08 04/30/18 04:28 Phys Exam - Physical Examination Constitutional: NAD HEENT: PERRLA, moist MMs, sclera anicteric Neck: no nodes, no JVD, supple Respiratory: no wheezing, no rales, no rhonchi inspiratory crackles B/L lower lobes Cardiovascular: RRR, no significant murmur, no rub Gastrointestinal: soft, non-tender, no distention, positive bowel sounds Musculoskeletal: pulses present, edema present (trace) Dx/Plan (1) SOB (shortness of breath) Code(s): R06.02 - SHORTNESS OF BREATH Status: Acute (2) Diastolic CHF Code(s): I50.30 - UNSPECIFIED DIASTOLIC (CONGESTIVE) HEART FAILURE Status: Acute (3) Volume overload Code(s): E87.70 - FLUID OVERLOAD, UNSPECIFIED Status: Acute (4) Pulmonary congestion Code(s): R09.89 - OTH SYMPTOMS AND SIGNS INVOLVING THE CIRC AND RESP SYSTEMS Status: Acute (5) Ovarian cancer Status: Acute - Plan * xanax prn * port placement in AM * no other changes in plan of care * can likely DC 24-48hrs post chemoport placement once cleared by surgery team * change diuretics to PO * case and plan d/w patient and family at length, they understand and agree with this plan
[2018-04-30] MEDS: Furosemide 80 MG TAB PO SCH (15:06)
--- NOTE | 2018-04-30 15:33 | PDOC.CTH ---
Cardiology Progress Note - Subjective The pt seen and examined. No overnight events. No cardiac complaints. She breathes slightly better today. - Objective Vital Signs Temp Pulse Resp BP BP BP Pulse Ox 04/30/18 15:03 98.1 F 90 18 122/74 97 04/30/18 12:30 97.4 F L 101 H 16 120/72 98 04/30/18 08:32 104 H 128/79 04/30/18 08:30 98 04/30/18 08:23 97.5 F L 104 H 20 128/79 98 Admit Weight 135 lb 14.4 oz Weight 126 lb 12.8 oz 04/29/18 04/30/18 05/01/18 06:59 06:59 06:59 Intake Total 450 650 Output Total 1100 1750 Balance -650 -1100 - Physical Examination General/Neuro: alert & oriented x3 Neck: no JVD present Lungs: other: (coarses and diminished at bases) Heart: other: (irregular) Abdomen: soft Extremities: other: (1-2+ pitting BLE edema) - Telemetry Telemetry Rhythm: AFib 80s - Labs Result Diagrams: 04/28/18 05:08 04/30/18 04:28 Troponin/CKMB Troponin I 0.010 ng/mL (< 0.028) 04/28/18 05:03 - Assessment/Plan 1. Acute on chronic diastolic HF - breathing is slightly better today. On Coreg , KORIN and Lasix IV BID, which was changed to PO. 2. Chronic Afib - HR well controlled with Coreg. Gregoryis is on hold for now for Mediport placement on Tuesday. 3. Ovarian cancer - will need to FU with oncology in 3-5 days post discharge 4. HTN - stable 5. Lt pleural effusion - another CXR tomorrow. cont. diuretic. MAR reviewed * Echo on 04/29/2018 showed EF 65-70%, mildly ERV, mild-mod dilated LA, mild ERA , mild-mod MR, mod-severe TR, mild NJ, and Lt pleural effusion. * Port placement in AM Pt. seen and eval. by me. I agree with the A/P by the CORNER BRACE BLOCK MACHINE OPERATOR. Chest : decreased on left and right . IRRR, + edema. Review of Systems - Review of Systems Constitutional: reports: no symptoms reported EENTM: reports: no symptoms reported Respiratory: reports: see HPI Cardiac (ROS): reports: no symptoms reported ABD/GI: reports: no symptoms reported : reports: no symptoms reported Musculoskeletal: reports: no symptoms reported
[2018-04-30] MEDS ORDERED: Potassium Chloride 20 MEQ TAB PO SCH (16:00)
[2018-04-30] MEDS: ALPRAZolam 0.25 MG TAB PO PRN (20:34)
[2018-05-01] MEDS ORDERED: Bupivacaine HCl 0.5%/Epinephrine 1:200,000/PF 30 ml Vial ONE (06:38)
[2018-05-01] MEDS ORDERED: Lidocaine 2% PF 5 ML VIAL ONE (06:38)
[2018-05-01] MEDS ORDERED: CEFAZOLIN 2 GM/50 ML BAG ONE (06:43)
[2018-05-01] MEDS ORDERED: Fentanyl 100 MCG/2 ML VIAL ONE (07:00)
[2018-05-01] MEDS ORDERED: Midazolam HCl 2 mg/2 ml Vial ONE (07:00)
[2018-05-01] MEDS ORDERED: KETAMINE 100 MG/ML (5ML VIAL) ONE (07:01)
[2018-05-01] MEDS ORDERED: traMADol HCl 50 MG TAB PO PRN ×2 (07:26)
[2018-05-01] MEDS ORDERED: Ibuprofen 600 MG TAB PO PRN (07:26)
[2018-05-01] MEDS ORDERED: Promethazine HCl 25 MG/ML VIAL IM PRN (07:54)
[2018-05-01] MEDS ORDERED: Promethazine HCl 25 MG/ML VIAL SLOW IVP PRN (07:54)
[2018-05-01] MEDS ORDERED: Ondansetron HCl/PF 4 MG/2 ML Vial IVP PRN (07:54)
--- NOTE | 2018-05-01 09:17 | RAD ---
SINGLE VIEW OF THE CHEST: Comparison: 04-27-18 History: Central line placement. Respiratory failure. FINDINGS: Single view of the chest shows an enlarged but stable cardiomediastinal silhouette with atherosclerot ic calcifications in the aorta. There is a left subclavian Mediport with its tip in the superior vena cava. No pneumothorax is seen. There are bilateral pleural effusions, right greater than left. IMPRESSION: 1. Status post Mediport placement without evidence of complication. 2. Bilateral pleural effusions. POS: [facility]
[2018-05-01] MEDS: Carvedilol 25 MG TAB PO SCH ×2 (10:38→22:17)
[2018-05-01] MEDS: Furosemide 80 MG TAB PO SCH ×2 (10:38→19:31)
[2018-05-01] MEDS: Potassium Chloride 20 MEQ TAB PO SCH (10:39)
[2018-05-01] MEDS: Lisinopril 5 MG TAB PO SCH (10:39)
[2018-05-01] MEDS: Polyethylene Glycol 3350 17 GM Packet PO SCH (10:41)
[2018-05-01] MEDS ORDERED: PROPOFOL 200 MG/20 ML VIAL ONE (13:52)
[2018-05-01] MEDS ORDERED: PHENYLEPHRINE-NS 100 MCG/ML 10 ML SYRINGE ONE (13:52)
--- NOTE | 2018-05-01 14:03 | PDOC.PN ---
- Subjective Encounter Start Date: 05/01/18 Encounter Start Time: 09:00 Pt seen for followup re: volume overload. Says she feels better. - Objective MAR Reviewed: Yes Vital Signs & Weight: Vital Signs (12 hours) Temp Pulse Resp BP BP Pulse Ox 05/01/18 10:39 106 H 107/66 05/01/18 03:21 98.6 F 87 18 124/72 95 Weight Admit Weight 135 lb 14.4 oz Weight 126 lb 12.8 oz I&O: 04/30/18 05/01/18 05/02/18 06:59 06:59 06:59 Intake Total 650 Output Total 1750 1200 Balance -1100 -1200 Result Diagrams: 04/28/18 05:08 04/30/18 04:28 EKG Reviewed by me: Yes (tele: jerrell hadley) Phys Exam - Physical Examination Constitutional: NAD HEENT: moist MMs Neck: supple Respiratory: clear to auscultation bilateral Cardiovascular: irregular Gastrointestinal: soft Neurological: moves all 4 limbs Psychiatric: normal affect Dx/Plan (1) Acute on chronic diastolic congestive heart failure, NYHA class 3 Code(s): I50.33 - ACUTE ON CHRONIC DIASTOLIC (CONGESTIVE) HEART FAILURE Status : Acute Comment: continue diuretics, beta cristin, ACEI (2) Volume overload Code(s): E87.70 - FLUID OVERLOAD, UNSPECIFIED Status: Acute Comment: continue diuretics (3) Chronic atrial fibrillation Code(s): I48.2 - CHRONIC ATRIAL FIBRILLATION Status: Chronic Comment: rate- controlled, Eliquis on hold (4) Ovarian cancer Status: Chronic Comment: for mediPort placement today - Plan * . Review of Systems - Review of Systems Respiratory: negative: Cough, Shortness of Breath, SOB with Excertion, Pleuritic Pain, Wheezing Cardiovascular: negative: chest pain, palpitations, orthopnea, paroxysmal nocturnal dyspnea, edema, light headedness - Medications/Allergies Allergies/Adverse Reactions: Allergies Allergy/AdvReac Type Severity Reaction Status Date / Time hydrochlorothiazide Allergy Verified 04/27/18 18:17 [From Maxzide] Nitrofuran Analogues Allergy Verified 04/27/18 18:17 triamterene [From Maxzide] Allergy Verified 04/27/18 18:17 Medications: Current Medications Acetaminophen (Tylenol) 1,000 mg PO Q6H PRN PRN Reason: Moderate to Severe Pain (6-10) Alprazolam (Xanax) 0.25 mg PO TIDPRN PRN PRN Reason: Anxiety Last Admin: 04/30/18 20:34 Dose: 0.25 mg Bisacodyl (Dulcolax) 10 mg PO DAILYPRN PRN PRN Reason: Constipation Carvedilol (Coreg) 25 mg PO BID [facility] Last Admin: 05/01/18 10:38 Dose: 25 mg Furosemide (Lasix) 80 mg PO 0900,1400 [facility] Last Admin: 05/01/18 10:38 Dose: 80 mg Ibuprofen (Motrin) 600 mg PO Q6H PRN PRN Reason: Pain Lisinopril (Zestril) 5 mg PO DAILY [facility] Last Admin: 05/01/18 10:39 Dose: 5 mg Ondansetron HCl (Zofran) 4 mg IVP Q6H PRN PRN Reason: Nausea/Vomiting Polyethylene Glycol (Miralax) 17 gm PO DAILY [facility] Last Admin: 05/01/18 10:41 Dose: Not Given Potassium Chloride (K-Dur) 40 meq PO QAM-WM [facility] Last Admin: 05/01/18 10:39 Dose: 40 meq Sodium Chloride (Flush - Normal Saline) 10 ml IVF Q12HR PRN PRN Reason: Saline Flush Last Admin: 04/30/18 08:35 Dose: 10 ml Tramadol HCl (Ultram) 50 mg PO Q6H PRN PRN Reason: Mild Pain (1-3) Tramadol HCl (Ultram) 100 mg PO Q6H PRN PRN Reason: Moderate Pain (4-6)
--- NOTE | 2018-05-01 15:31 | OP ---
DATE OF PROCEDURE: 05/01/2018 PREOPERATIVE DIAGNOSES: Ovarian cancer, serous cystadenocarcinoma, needle chemotherapy, antineoplastic access. POSTOPERATIVE DIAGNOSES: Ovarian cancer, serous cystadenocarcinoma, needle chemotherapy, antineoplastic access. PROCEDURE: Left subclavian vein low-profile MediPort. ANESTHESIA: TIVA, local of 0.5% Marcaine with epinephrine 30 mL mixed with 2% Xylocaine 10 mL, fluoroscopy used. DESCRIPTION OF PROCEDURE: The patient was taken to the operating room where under intravenous sedation, neck and chest were prepped with ChloraPrep and draped in routine fashion. Local anesthetic mixture was infiltrated into the skin and subcutaneous tissue about the operative site. Trocar catheter to cannulated the subclavian vein in the infraclavicular approach of the left chest, obtained a good return of venous blood, J-wire threaded, trocar catheter was removed. The skin was incised and enlarged sharply and the subcutaneous pocket was created with sharp and blunt dissection using cautery for hemostasis. Dilator and Peel-Away sheath was placed over the J-wire in the superior vena cava, and dilator and J-wire were removed. The catheter was placed through the Peel-Away sheath. Peel-Away sheath was removed. Fluoroscopically, catheter tip was placed in optimal position in the superior vena cava. Catheter was tailored to length and connected to the MediPort, placed in the subcutaneous pocket and secured with 2 sutures of 3-0 Prolene and the subcutaneous tissue was approximated with 3-0 Monocryl, skin with subdermal 4-0 Monocryl, and [place] glue applied. With Carrion needle, accessed the MediPort and obtained a good return of venous blood and flushed with heparinized saline solution. Fluoroscopy revealed good line and port placement. Job ID: [id number]
[2018-05-01] MEDS: Acetaminophen 500 MG TAB PO PRN (16:06)
--- NOTE | 2018-05-01 17:39 | PDOC.CTH ---
Cardiology Progress Note - Subjective no complaints post mediport - Objective Vital Signs Temp Pulse Resp BP BP Pulse Ox 05/01/18 10:39 106 H 107/66 05/01/18 08:35 96.9 F L 91 20 136/73 96 Admit Weight 135 lb 14.4 oz Weight 126 lb 12.8 oz 04/30/18 05/01/18 05/02/18 06:59 06:59 06:59 Intake Total 650 Output Total 1750 1200 Balance -1100 -1200 - Physical Examination General/Neuro: alert & oriented x3, NAD Neck: no JVD present Lungs: unlabored respirations Heart: other: (irr) Abdomen: NT/ND, soft Extremities: + femoral B - Telemetry Telemetry Rhythm: afib - Labs Result Diagrams: 04/28/18 05:08 04/30/18 04:28 Troponin/CKMB Troponin I 0.010 ng/mL (< 0.028) 04/28/18 05:03 - Assessment/Plan afib ovarian cancer recent mediport placement Pt HR in the 90's to 100's Resume eliquis when ok with surgeon Add CCB if HR remains elevated
[2018-05-01] MEDS ORDERED: Clopidogrel Bisulfate 75 MG TAB ONE (17:59)
[2018-05-01] MEDS: ALPRAZolam 0.25 MG TAB PO PRN (22:16)
[2018-05-02] MEDS: Lisinopril 5 MG TAB PO SCH (08:45)
[2018-05-02] MEDS: Polyethylene Glycol 3350 17 GM Packet PO SCH (08:46)
[2018-05-02] MEDS: Carvedilol 25 MG TAB PO SCH ×2 (08:46→21:45)
[2018-05-02] MEDS: Furosemide 80 MG TAB PO SCH ×2 (08:46→14:35)
[2018-05-02] MEDS: Potassium Chloride 20 MEQ TAB PO SCH (08:46)
[2018-05-02 11:21] VITALS: BMI 21.7
[2018-05-02] MEDS: Acetaminophen 500 MG TAB PO PRN (13:05)
--- NOTE | 2018-05-02 14:01 | PDOC.PN ---
- Subjective Encounter Start Date: 05/02/18 Encounter Start Time: 09:40 Pt seen for followup re: CHF exacerbation. Still has SOBOE. - Objective MAR Reviewed: Yes Vital Signs & Weight: Vital Signs (12 hours) Temp Pulse Resp BP Pulse Ox 05/02/18 12:00 98.3 F 92 20 124/81 95 05/02/18 08:46 94 L 05/02/18 08:00 97.7 F 98 18 131/74 94 L 05/02/18 04:33 99.2 F 100 22 H 124/68 93 L Weight Admit Weight 135 lb 14.4 oz Weight 125 lb 3.2 oz I&O: 05/01/18 05/02/18 05/03/18 06:59 06:59 06:59 Intake Total 905 Output Total 1200 600 Balance -1200 305 Result Diagrams: 04/28/18 05:08 04/30/18 04:28 EKG Reviewed by me: Yes (Tele; a. fib) Phys Exam - Physical Examination Constitutional: NAD HEENT: moist MMs Neck: supple José Miguel crackles Cardiovascular: irregular Gastrointestinal: soft Neurological: moves all 4 limbs Psychiatric: normal affect Dx/Plan (1) Acute on chronic diastolic congestive heart failure, NYHA class 3 Code(s): I50.33 - ACUTE ON CHRONIC DIASTOLIC (CONGESTIVE) HEART FAILURE Status : Acute Comment: continue diuretics, beta cristin, ACEI. Still needing supplemental oxygen (not on home oxygen) (2) Volume overload Code(s): E87.70 - FLUID OVERLOAD, UNSPECIFIED Status: Acute Comment: continue furosemide (3) Chronic atrial fibrillation Code(s): I48.2 - CHRONIC ATRIAL FIBRILLATION Status: Chronic Comment: will resume Eliquis when cleared by surgery (4) Ovarian cancer Status: Chronic Comment: mediPort placed yesterday - Plan * . Review of Systems - Review of Systems Respiratory: SOB with Excertion. negative: Cough, Shortness of Breath, Pleuritic Pain, Wheezing Cardiovascular: negative: chest pain, palpitations, orthopnea, paroxysmal nocturnal dyspnea, edema, light headedness - Medications/Allergies Allergies/Adverse Reactions: Allergies Allergy/AdvReac Type Severity Reaction Status Date / Time hydrochlorothiazide Allergy Verified 04/27/18 18:17 [From Maxzide] Nitrofuran Analogues Allergy Verified 04/27/18 18:17 triamterene [From Maxzide] Allergy Verified 04/27/18 18:17 Medications: Current Medications Acetaminophen (Tylenol) 1,000 mg PO Q6H PRN PRN Reason: Moderate to Severe Pain (6-10) Last Admin: 05/02/18 13:05 Dose: 1,000 mg Alprazolam (Xanax) 0.25 mg PO TIDPRN PRN PRN Reason: Anxiety Last Admin: 05/01/18 22:16 Dose: 0.25 mg Bisacodyl (Dulcolax) 10 mg PO DAILYPRN PRN PRN Reason: Constipation Carvedilol (Coreg) 25 mg PO BID [facility] Last Admin: 05/02/18 08:46 Dose: 25 mg Furosemide (Lasix) 80 mg PO 0900,1400 [facility] Last Admin: 05/02/18 08:46 Dose: 80 mg Ibuprofen (Motrin) 600 mg PO Q6H PRN PRN Reason: Pain Lisinopril (Zestril) 5 mg PO DAILY [facility] Last Admin: 05/02/18 08:45 Dose: 5 mg Ondansetron HCl (Zofran) 4 mg IVP Q6H PRN PRN Reason: Nausea/Vomiting Polyethylene Glycol (Miralax) 17 gm PO DAILY [facility] Last Admin: 05/02/18 08:46 Dose: Not Given Potassium Chloride (K-Dur) 40 meq PO QAM-WM [facility] Last Admin: 05/02/18 08:46 Dose: 40 meq Sodium Chloride (Flush - Normal Saline) 10 ml IVF Q12HR PRN PRN Reason: Saline Flush Last Admin: 04/30/18 08:35 Dose: 10 ml Tramadol HCl (Ultram) 50 mg PO Q6H PRN PRN Reason: Mild Pain (1-3) Tramadol HCl (Ultram) 100 mg PO Q6H PRN PRN Reason: Moderate Pain (4-6)
--- NOTE | 2018-05-02 14:10 | PDOC.CTH ---
Cardiology Progress Note - Subjective Feels stronger today. No specific complaints. HR in the 90's to 100's - Objective Vital Signs Temp Pulse Resp BP Pulse Ox 05/02/18 12:00 98.3 F 92 20 124/81 95 05/02/18 08:46 94 L 05/02/18 08:00 97.7 F 98 18 131/74 94 L 05/02/18 04:33 99.2 F 100 22 H 124/68 93 L Admit Weight 135 lb 14.4 oz Weight 125 lb 3.2 oz 05/01/18 05/02/18 05/03/18 06:59 06:59 06:59 Intake Total 905 Output Total 1200 600 Balance -1200 305 - Physical Examination General/Neuro: alert & oriented x3, NAD Neck: no JVD present Lungs: unlabored respirations Heart: other: (irr) Abdomen: no HSM, NT/ND, soft Extremities: + femoral B - Telemetry Telemetry Rhythm: afib - Labs Result Diagrams: 04/28/18 05:08 04/30/18 04:28 Troponin/CKMB Troponin I 0.010 ng/mL (< 0.028) 04/28/18 05:03 - Assessment/Plan afib ovarian cancer recent mediport placement Added digoxin Continue coreg Restart ACT when ok with surgery Home soon.
[2018-05-02] MEDS ORDERED: Digoxin 0.5 MG/2 ML AMP SLOW IVP SCH (14:15)
[2018-05-02] MEDS ORDERED: Potassium Chloride 20 MEQ TAB PO SCH (15:00)
[2018-05-02] MEDS: ALPRAZolam 0.25 MG TAB PO PRN (21:45)
[2018-05-02] MEDS: Apixaban 2.5 MG TAB PO SCH (21:45)
[2018-05-03] MEDS ORDERED: Digoxin 0.125 MG TAB PO SCH (09:00)
[2018-05-03] MEDS: Potassium Chloride 20 MEQ TAB PO SCH (09:44)
[2018-05-03] MEDS: Apixaban 2.5 MG TAB PO SCH (09:44)
[2018-05-03] MEDS: Carvedilol 25 MG TAB PO SCH (09:44)
[2018-05-03] MEDS: Furosemide 80 MG TAB PO SCH ×2 (09:45→14:19)
[2018-05-03] MEDS: Lisinopril 5 MG TAB PO SCH (09:45)
[2018-05-03] MEDS: Polyethylene Glycol 3350 17 GM Packet PO SCH ×2 (09:47→09:51)
--- NOTE | 2018-05-03 12:59 | PQF ---
EVANGELINA CHANDLER PAMELA ALLEN [id number] CLINICAL DOCUMENTATION IMPROVEMENT CLARIFICATION FORM: ICD-10 Updated PLEASE DO AN ADDENDUM TO THE PROGRESS NOTE WITH ANY DOCUMENTATION UPDATES OR ADDITIONS AND CARRY THROUGH TO DC SUMMARY. THANK YOU. DATE: 05/03/2018 ATTN: DR. HA Please exercise your independent, professional judgment in responding to the clarification form. Clinical indicators are provided on the bottom of this form for your review Please check appropriate box(s): [ ] Acute Respiratory Failure: [ ] with Hypoxia[ ] with Hypercapnia [ ] Acute On Chronic Respiratory Failure: [ ] with Hypoxia [ ] with Hypercapnia [ ] Other diagnosis [ ] Unable to determine For continuity of documentation, please document condition throughout progress notes and discharge summary. Thank You. CLINICAL INDICATORS - SIGNS / SYMPTOMS / LABS Feeling short of breath, especially with walking. Unable to to perform her activities and notes that she has had bilateral lower swelling of her legs which have been worsening in the last week. Newly diagnosed Diastolic CHF, this Admission Decreased oxygen saturation (<90% room air or < 95% on oxygen). GVP=253.4 Cyanosis/Hypoxia Rapid respirations >20 periodically throughout this hospitalization Pulmonary vascular congestion and large right pleural effusion CXR 3+ bilateral lower extremity pitting edema. RISK FACTORS Newly diagnosed ovarian cancer x 3mo Newly diagnosed Diastolic CHF this Admission Newly diagnosed Atrial Fibrillation this Admission TREATMENTS: Oxygen Monitoring of oxygenation status Diuresis Cardiology consult and ECHO ADDITIONAL INFORMATION: *Sent from Cardiology Clinic for fluid overload. 1/3-H&P: Decreased breath sounds in bilateral lower lung li. Moderate respiratory distress. Mild fluid wave noted on abdominal exam. 1/4: Requiring O2 via NC for respiration thus will start diuretic. 05/02: Still needing supplemental oxygen (not on home oxygen) Thank you, Airam (This form is maintained as a part of the permanent medical record) 2015 [employer]. All Rights Reserved Airam Love RN, CDIS [email or web address] [phone] [email or web address]
[2018-05-03 14:57] VITALS: TEMP 98.3
[2018-05-03 20:41] VITALS: BP 117/71
--- NOTE | 2018-05-03 22:51 | DIS ---
DATE OF ADMISSION: 04/28/2018 DATE OF DISCHARGE: 05/03/2018 PRIMARY CARE PROVIDER: Dr. Trey Espinoza. DISCHARGE DIAGNOSES: 1. Acute on chronic diastolic congestive heart failure, NYHA class III, ACC/AHA class C. 2. Volume overload. 3. Hypokalemia. 4. Acute hypoxic respiratory failure. CONDITION OF PATIENT ON THE DAY OF DISCHARGE: Stable. I assessed Ms. Montiel on the day of discharge. She denies any chest pain. Vital signs are stable. S1 and S2 are heard, regular. Lungs are clear to auscultation bilaterally. CONSULTATION DURING THIS HOSPITALIZATION: 1. Cardiology, Cari Mijares MD. 2. General Surgery, Jon Thomas MD. HOSPITAL COURSE: Ms. Montiel is a pleasant 77-year-old lady, who was admitted to [facility] on April 27, 2018, for significant volume overload. Please refer to Dr. De Souza's history and physical note dated April 27, 2018, for further details. She was started on diuretics. A 2D echocardiogram showed left ventricular ejection fraction of 60% to 70%, mildly enlarged right ventricular cavity, mild to moderately dilated left atrium, mildly enlarged right atrium, [id number] mitral regurgitation, trivial aortic regurgitation, structurally normal aortic valve, [id number] tricuspid regurgitation, and mild pulmonic regurgitation. She was seen by General Surgery Service for MediPort placement and underwent MediPort placement on May 01, 2018. She continued to improve clinically. Her anticoagulation was on hold for MediPort placement and was resumed on the evening of May 02, 2018. She was advised to have her chem-7 checked in approximately a week's time. DISCHARGE MEDICATIONS: Include: 1. Apixaban 2.5 mg 2 times a day. 2. Coreg 25 mg 2 times a day. 3. Calcium carbonate/vitamin-D 1 tablet daily. 4. Lasix 80 mg 2 times a day. 5. Lisinopril 5 mg daily. 6. MiraLAX 17 g daily. 7. Potassium chloride 40 mEq daily. 8. Digoxin 0.125 mg daily On April 30, 2018, she had sodium 138, potassium 3.0, creatinine 0.69. White count 9200, hemoglobin 11.4, and platelet count 410,000. Many thanks for allowing me to participate in your patient's care. Please feel free to contact me with any questions or concerns. DISCHARGE DESTINATION: Home. TIME SPENT: Total amount of time spent coordinating this discharge: 33 minutes. Job ID: [id number] MTDD
== END 2018-05-03 16:59 | disposition home or self-care (01) | DRG 291 ==
LOC: ERS 12:47 → 2SW 17:44 → ERS 17:52 → OBSVTOIN 04-28 10:08 → 2NO 04-28 18:47
PROVIDERS: ADMIT Internal Medicine; ATTEND Internal Medicine
PROC: 05H633Z Insertion of Infusion Device into Left Subclavian Vein, Percutaneous Approach (ICD-10-PCS; principal; 2018-05-01)
DX: I11.0 Hypertensive heart disease with heart failure (principal); J96.01 Acute respiratory failure with hypoxia; J90 Pleural effusion, not elsewhere classified; C56.9 Malignant neoplasm of unspecified ovary; I50.33 Acute on chronic diastolic (congestive) heart failure; Z88.8 Allergy status to other drugs, medicaments and biological substances; Z88.1 Allergy status to other antibiotic agents; Z79.01 Long term (current) use of anticoagulants; E87.6 Hypokalemia; I48.2 Chronic atrial fibrillation
CPT/HCPCS: 36415; 71045; 71260; 74177; 80048; 80053; 81003; 81015; 82550; 83690; 83880; 84484; 85025; 93005; 93306; 93798; 96374; 99213; C1788; G0463; J0670; J1160; J1642; J1940; J2001; J2250; J2704; J3010

== ENCOUNTER 2018-05-18 18:37 | Inpatient (IN) | payer MEDICARE, OTHER ==
[~2018-05-18 18:37] MED LIST: ISOVUE-370 76%-LOCM 1 ML ONE
[2018-05-18 19:20] LABS: %Eosinophils 0.4 % (0.0-10.0); %Lymphocytes 10.6 % (21.0-51.0); %Monocytes 5.7 % (0.0-10.0); %Neutrophils 83.2 % (42.0-75.0); Mean Corpuscular HGB CONC 30.9 g/dL (32.0-36.0); Mean Corpuscular Hemoglobin 27.5 pg (27.0-31.0); Mean Platelet Volume 7.8 fL (7.4-10.4); Platelet Count 131 thou/uL (130-400); RBC Distribution Width 12.2 % (11.5-14.5); Red Blood Cell (RBC) Count 4.36 mill/uL (4.20-5.40)
[2018-05-18 19:21] LABS: #Lymphocytes 0.8 thou/uL (1.20-3.40); #Monocytes 0.5 thou/uL (0.11-0.59); #Neutrophils 6.6 thou/uL (1.40-6.50); %Basophils 0.2 % (0.0-1.0)
[2018-05-18 19:41] LABS: ALT (SGPT) 40 U/L (8-55); AST (SGOT) 40 U/L (5-34); Albumin 3.3 g/dL (3.4-4.8); Alkaline Phosphatase 115 U/L (40-150); Anion Gap 13 mmol/L (10-20); BUN (Urea Nitrogen) 27 mg/dL (9.8-20.1); Bilirubin, Total 0.7 mg/dL (0.2-1.2); Calc. Creatinine Clearance 0 mL/min (70-130); Calcium 8.5 mg/dL (7.8-10.44); Carbon Dioxide 33 mmol/L (23-31); Chloride 92 mmol/L (98-107); Estimated GFR-MDRD 75; Globulin 3.1 g/dL (2.4-3.5); Glucose 113 mg/dL (83-110); Potassium 4.2 mmol/L (3.5-5.1); Protein, Total 6.4 g/dL (6.0-8.3); Sodium 134 mmol/L (136-145)
[2018-05-18 19:57] LABS: INR-International Normal Ratio 1.1; PTT 30.1 SEC (22.9-36.1); Prothrombin Time 14.6 SEC (12.0-14.7)
[2018-05-18 20:17] LABS: Digoxin 0.66 ng/mL (0.8-2.0)
--- NOTE | 2018-05-18 21:12 | RAD ---
FRONTAL RADIOGRAPH CHEST 05/18/18 COMPARISON: 05/01/18. HISTORY: Malignant ovarian tumor, weakness, pleural effusion. FINDINGS: There is a stable CT injectable left sided Port-A-Cath. There is no pneumothorax. There is a large ri ght pleural effusion, increased slightly when compared to the prior 05/01/18 exam. There is dense pleur al and parenchymal opacity in the left lung base as well. IMPRESSION: Prominent bilateral pleural effusions, right greater than left, enlarged on the right when compared t o the prior examination. POS: JULIET
--- NOTE | 2018-05-18 22:42 | CT ---
CONTRAST ENHANCED CTA CHEST 05/18/18 HISTORY: 77-year-old with history of shortness of breath. Contrast enhanced CTA chest is performed. Bilateral pleural effusions seen very large on the right an d small to moderate on the left. There is areas of atelectasis in the right lower lone and right middle lobe with some aerated right u pper lobe seen. Areas of atelectasis also seen in the left lower lobe. The thoracic aorta is unremarkable. Coronary artery calcification seen. No definite evidence of filling defects seen in the pulmonary arteries to suggest pulmonary emboli. IMPRESSION: Bilateral pleural effusions much larger on the right than on the left. POS: FFK
[2018-05-18 23:58] LABS: CKMB 4.7 ng/mL (0-6.6)
[2018-05-19 03:24] LABS: CKMB 4.6 ng/mL (0-6.6)
--- NOTE | 2018-05-19 12:43 | CON ---
DATE OF CONSULTATION: 05/19/2018 PULMONARY/CRITICAL CARE CONSULTATION TIME SPENT: This is 70 minutes time, of that time, greater than 50% was spent with the patient and/or on the patient's unit in the hospital. REASON FOR CONSULTATION: Right pleural effusion, shortness of breath. HISTORY OF PRESENT ILLNESS: Ms. Montiel is a 77-year-old female, who came to the emergency room last night with progressive shortness of breath. Apparently, she had been seen by her wire splicer earlier in the week and they could not figure out why she was having so much in the way of shortness of breath. Upon presentation in the hospital, it was clear that the patient had a fairly significant right-sided pleural effusion. She tells me that she has been told she had heart failure in the past. Echo looks like this is probably diastolic heart failure. She also has a history of ovarian carcinoma with small bowel invasion that required resection a few weeks back. 1. Hypertension. 2. Chronic atrial fibrillation, requiring Eliquis. PAST SURGICAL HISTORY: 1. Ovarian carcinoma with resection. 2. Hysterectomy. 3. Appendectomy. FAMILY MEDICAL HISTORY: Remarkable for cardiovascular disease. SOCIAL HISTORY: She lives with her . Does not smoke. Does not use alcohol. Does not use illicit drugs. ALLERGIES: NONE. MEDICATIONS: Prior to admission, 1. Eliquis. 2. Carvedilol. 3. Calcium. 4. Lisinopril. 5. MiraLAX. REVIEW OF SYSTEMS: Remarkable for shortness of breath, difficulty swallowing. No fever, chills, nausea, vomiting, chest pain, hemoptysis, melena, hematochezia, hematuria, dysuria. PHYSICAL EXAMINATION: VITAL SIGNS: Pulse 92, respirations 36, O2 saturation 99% on 2 L. GENERAL: She is an elderly female, who is thin and appears to be in moderate respiratory distress. HEENT: Pupils react. Sclerae icteric. Oropharynx clear. NECK: No adenopathy or JVD. LUNGS: She has almost absent breath sounds on the right chest and dullness to percussion over the whole right side. She has diminished breath sounds in the left base also. CARDIAC: S1 and S2. Irregularly irregular. ABDOMEN: Soft, slightly distended. EXTREMITIES: No clubbing, cyanosis, or edema. LABORATORY DATA: White blood cell count 8, hematocrit 38.9, and platelet count 131. INR 1.1. Sodium 134, potassium 4.2, chloride 92, CO2 of 33, BUN 27, creatinine 0.7, and glucose 113. Troponin 0.038. BNP 323. Her x-ray shows a massive right-sided pleural effusion, which is confirmed by CT. ASSESSMENT: 1. Massive right pleural effusion with respiratory compromise. 2. Chronic atrial fibrillation, on Eliquis. 3. Ovarian cancer. DISCUSSION: An effusion this size would bring about metastatic cancers being the most suspicious etiology. Congestive heart failure is not out of the ordinary, but usually does not cause effusion this big. Infection could also be a possibility. RECOMMENDATION: I discussed this with the patient and her family at bedside. I think, she needs a thoracentesis for both diagnostic and therapeutic purposes. I do not think we can wait for her anticoagulation to be held as she is currently compromised with respiratory status. She does have a high risk for bleeding with the procedure and she understands that. She also understands the risk of infection and extra lung puncture. She agrees to proceed with thoracentesis. Job ID: [id number]
[2018-05-19 13:05] LABS: BF Color Red; Body Fluid Source PLEURAL FLUID; Clarity Cloudy/Turbid (Clear); Tube # EDTA; WBC/NonHematic-Auto 320 /cumm
[2018-05-19 13:06] LABS: RBC Count-Automated 39000 /cumm
[2018-05-19 13:14] LABS: Pleural Fluid, Protein 3.5 g/dL
--- NOTE | 2018-05-19 13:16 | OP ---
DATE OF PROCEDURE: 05/19/2018 PROCEDURE PERFORMED: Right thoracentesis. PREOPERATIVE DIAGNOSIS: Right pleural effusion. POSTOPERATIVE DIAGNOSIS: Right pleural effusion. ANESTHESIA: 1% lidocaine without epinephrine. DESCRIPTION OF PROCEDURE: Informed consent was obtained for this patient. She was placed in sitting position. She understood the risks involved including bleeding, infection next to lung puncture, and agreed to proceed. She understood the risk was high by the fact that she was currently on Eliquis, but that the benefit from doing the procedure far outweigh the risk. 1% lidocaine was used to anesthetize the fifth and sixth interspace of the midscapular line once the area had been prepped sterilely with chlorhexidine. Using sterile technique, a [id number] catheter was placed in the right pleural space. A 2 L of blood-tinged pleural fluid was removed and sent for appropriate studies. She tolerated the procedure well. Job ID: [id number]
[2018-05-19 13:28] LABS: BF Segmented Neutrophils 10 %; Cell Count Non Hematic 23 %; Lymphocytes 67 %
--- NOTE | 2018-05-19 13:57 | HP ---
PRIMARY CARE PROVIDER: Dr. Trey Espinoza. CHIEF COMPLAINT: Shortness of breath. HISTORY OF PRESENT ILLNESS: Ms. Montiel is a pleasant 77-year-old lady, who was seen at [facility] on May 19, 2018. She was hospitalized at [facility] from April 28 to of this year for acute on chronic diastolic congestive heart failure, volume overload, and acute hypoxic respiratory failure. When she was discharged from the hospital, she was on oral Lasix 80 mg 2 times a day. Following discharge, apparently her Lasix dose was adjusted because of low blood pressure. Two days ago, she was on 40 mg daily. Over the last several days, she has noticed progressively worsening shortness of breath. She reports that she is able to walk short distances without feeling short of breath. She reports orthopnea. Over the last couple of days, shortness of breath with exertion has worsened as well. She had some blood work done 2 or 3 days ago through her cigar wrapper's office and was advised to go to the emergency room. She presented to the emergency room at [facility] and was subsequently transferred to the emergency room at [facility]. She was started on chemotherapy two weeks ago. Her next round of chemotherapy is on May 29. She is receiving chemotherapy for ovarian tumor. REVIEW OF SYSTEMS: All other systems reviewed and found to be negative. PAST MEDICAL HISTORY: Chronic atrial fibrillation, on chronic anticoagulation; hypertension; ovarian carcinoma; chronic diastolic congestive heart failure; and significant for coronary artery disease. PAST SURGICAL HISTORY: Ovarian carcinoma, status post resection; hysterectomy; appendectomy; and bowel resection for invasion by ovarian malignancy. CODE STATUS: I discussed her code status. She is full code. SOCIAL HISTORY: Occasional alcohol use, no tobacco use or recreational drug use. ALLERGIES: HYDROCHLOROTHIAZIDE, NITROFURANTOIN, AND TRIAMTERENE. CURRENT MEDICATIONS: 1. Carvedilol 25 mg two times a day. 2. Alendronate 70 mg every week. 3. Eliquis 2.5 mg two times a day. 4. Alprazolam p.r.n. 5. Digoxin 125 mcg daily. 6. Lasix 40 mg daily. 7. Zofran p.r.n. 8. Potassium chloride 20 mEq daily. 9. Tramadol p.r.n. PHYSICAL EXAMINATION: GENERAL: Ms. Montiel is awake and alert, not in acute distress. Blood pressure is 134/70, pulse 91, respiratory rate 28, and oxygen saturation 98% on 2 L of oxygen. She is afebrile. She appears frail. EYES: No scleral icterus, no conjunctival pallor. ENT: Moist mucosal membranes. No oropharyngeal erythema or exudates. NECK: Supple, nontender, trachea is midline. RESPIRATORY: Accessory muscles of breathing are mildly active. Chest wall movements are asymmetric, with diminished excursion on the right. Auscultation reveals absent breath sounds at the right base. CARDIOVASCULAR: S1 and S2 are heard, irregular. Peripheral pulses palpable. No carotid bruit. No pericardial rub. ABDOMEN: Soft, nontender, bowel sounds heard, no hepatomegaly, no splenomegaly. NEUROLOGIC: Cranial nerves 2 through 12 intact, deep tendon reflexes 2+. MUSCULOSKELETAL: Power is 5/5 in all four extremities. SKIN: No rashes or subcutaneous nodules. LYMPHATIC: No cervical lymphadenopathy. PSYCHIATRIC: Normal mood, normal affect, the patient is oriented to person, place, and time. LABORATORY DATA: Ms. Montiel's labs and investigations were reviewed. I reviewed her electrocardiogram, which shows atrial fibrillation, no ST changes to suggest an acute coronary syndrome. I reviewed her chest x-ray, which shows a large right-sided pleural effusion. She also had CT angiogram of the chest, which showed bilateral pleural effusions, much larger on the right than on the left. There was no definite evidence of filling defects seen in the pulmonary arteries to suggest pulmonary emboli. She has an unremarkable CBC, INR 1.1, decreased sodium of 134 , elevated carbon dioxide of 33, normal anion gap, elevated blood urea nitrogen of 27, normal creatinine, AST mildly elevated at 40, albumin mildly decreased at 3.3, otherwise unremarkable liver profile, elevated BNP of 323.8, and indeterminate troponin I of 0.038. ASSESSMENT AND PLAN: Ms. Montiel is a pleasant 77-year-old lady, who was seen at [facility] on May 19, 2018. Her problem list includes: 1. Acute hypoxic respiratory failure: Ms. Montiel is presenting with acute hypoxic respiratory failure, most likely secondary to large right pleural effusion. She will be admitted to the hospital for further management. 2. Right pleural effusion: Most likely etiology is congestive heart failure. However, given her history of ovarian malignancy, it is possible that this could be a malignant pleural effusion as well. We will consult Pulmonology Service for opinion and help with management, including possible thoracentesis. 3. Atrial fibrillation: Appears to be stable. 4. Hypertension: We will resume home medications, monitor vital signs, and titrate antihypertensives as needed. 5. Congestive heart failure: It is unclear whether the patient is in congestive heart failure exacerbation or whether her respiratory status is secondary to malignant pleural effusion. We will consult Cardiology Service for opinion and help with management. Many thanks for allowing me to participate in your patient's care. Please feel free to contact me with any questions or concerns. LEVEL OF RISK: High. LEVEL OF COMPLEXITY: High. Job ID: [id number] [facility] CENTERMicah
--- NOTE | 2018-05-19 14:08 | RAD ---
RADIOGRAPH CHEST 1 VIEW: Date: 05/19/2018. Time: 12:27 p.m. HISTORY: A 77-year-old female with right pleural effusion. Dr. Singh reported the right pneumothorax by telephone to nurse Dinora Mead of the emergency department at 1:26 p.m. on 05/19/2018. She was instructed to notify Dr. Nevarez STAT. COMPARISON: 05/18/2018. FINDINGS: The previously demonstrated very large right pleural effusion has been drained, and now there is only a small residual component of right pleural effusion. There is a new moderate to large right pneumo thorax, occupying approximately 50% volume of the right hemithorax, with severe atelectasis of the ri ght lower lobe. Trachea remains at midline. The cardiac shadow may be minimally shifted to the left . No cardiomegaly. Small to moderate-sized left pleural effusion remains, with dense opacification of the left base. No pulmonary edema in the left lung. The left upper lobe is clear. Left subclavi an implantable vascular access port remains. IMPRESSION: 1. Large right pneumothorax. 2. Interval drainage of most of the right pleural effusion, with small residual right pleural effusi on. 3. Small to moderate sized contralateral left pleural effusion and underlying left lower lobe atelec tasis, are unchanged. CODE CR JN [] POS: JULIET
--- NOTE | 2018-05-19 17:58 | CON ---
DATE OF CONSULTATION: 05/19/2018 PRIMARY POLYSOMNOGRAPH TECH: Samir Lagunas MD. HISTORY OF PRESENT ILLNESS: Ms. Montiel is a pleasant 77-year-old white female, who comes to the hospital for shortness of breath. She was seen by Dr. Bebo Fish's PA recently for shortness of breath in the office after she was admitted before that and diagnosed with metastatic ovarian cancer, she has chronic atrial fibrillation on chronic anticoagulation with Eliquis. She had some blood work done and had a very elevated D-dimer, so she was asked to come to the ER for evaluation. In the ER, a CT of the chest was done and showed massive pleural effusion on the right lung, making the right lung to be completely collapsed and probably a [id number] effusion on the left side. So cardiology has been consulted for possible heart failure. BNP was mildly elevated. PAST MEDICAL HISTORY: 1. Hypertension. 2. Chronic atrial fibrillation. 3. Chronic anticoagulation for stroke prophylaxis. 4. Ovarian carcinoma. 5. Chronic diastolic heart failure. 6. Coronary artery disease. PAST SURGICAL HISTORY: 1. Resection of ovarian cancer. 2. Hysterectomy. 3. Appendectomy. 4. Bowel resection secondary to invasion by ovarian malignancy. OUTPATIENT MEDICATIONS: 1. Coreg 25 mg p.o. b.i.d. 2. Potassium 40 mEq a day. 3. MiraLAX p.r.n. 4. Lisinopril 5 mg a day. 5. Lasix 80 mg twice a day. 6. Digoxin 0.125 daily. 7. Calcium vitamin D. 8. Eliquis 2.5 mg b.i.d. ALLERGIES: HYDROCHLOROTHIAZIDE, NITROFURANTOIN, AND TRIAMTERENE. SOCIAL HISTORY: Social alcohol use. No tobacco or drug use. REVIEW OF SYSTEMS: A 12-point review of systems was done and was found to be negative unless stated in the History of Present Illness. PHYSICAL EXAMINATION: VITAL SIGNS: Temperature 97.7, pulse 96, respiratory rate 18, saturations 97% on 2 L, blood pressure 127/79. GENERAL: Awake, alert, and oriented x3, in no distress. HEENT: Normocephalic and atraumatic. NECK: Supple. LUNGS: Have no breath sounds in the right lung and reduced breath sounds in the left base. CARDIOVASCULAR: Irregularly irregular. Heart rate in the 90s to low 100s. ABDOMEN: Soft. Positive bowel sounds. EXTREMITIES: No edema. SKIN: Warm and dry. LABORATORY DATA: Laboratory work was reviewed. White count of 8, hemoglobin of 12, hematocrit 38, and platelet count of a 131. Coags were normal. Chemistry with sodium of 134, potassium 4.2, BUN of 27, creatinine of 0.7. Troponin was 0.03, 0.04, 0.03 with a BNP of 323, albumin of 3.3. Toxicology with dig level of 0.66. ASSESSMENT AND PLAN: 1. Large pleural effusion in the right side. 2. Shortness of breath, likely from pleural effusion. 3. Chronic diastolic heart failure, not in an acute exacerbation at the moment. 4. Normal LV function, hyperdynamic, actually in the last echo was 60% to 70% with [id number] TR. PLAN: 1. The patient already underwent thoracentesis by Dr. Nevarez. She already feels much better. About 2 L of fluid were taken out serosanguineous. Awaiting testing by this fluid per Dr. Nevarez. 2. I do not think she needs high dose Lasix at this time. This shortness of breath was likely related to this pleural effusion which is not from heart failure, most likely from her malignancy. Would keep her on a daily dose of 40 mg a day for now to see how she does. 3. Chronic atrial fibrillation: We will have to hold Eliquis for now until we feel it is safe from the pleural space point of view. We will switch to aspirin for now. We may restart in the future if we think its anticoagulation is safe. Thank you for letting me to participate in the care of your patient. We will follow. Job ID: [id number]
[2018-05-19] MEDS: Carvedilol 25 MG TAB PO SCH (20:36)
[2018-05-20] MEDS: Calcium Carbonate + Vit D 1 TAB PO SCH (07:54)
[2018-05-20] MEDS: Carvedilol 25 MG TAB PO SCH ×2 (07:54→21:20)
[2018-05-20] MEDS: Furosemide 40 MG TAB PO SCH (07:54)
[2018-05-20] MEDS: Digoxin 0.125 MG TAB PO SCH (07:54)
[2018-05-20] MEDS: Lisinopril 5 MG TAB PO SCH (07:55)
[2018-05-20] MEDS ORDERED: Aspirin 81 mg Enteric Coated Tablet PO SCH (09:00)
[2018-05-20] MEDS ORDERED: Polyethylene Glycol 3350 17 GM Packet PO PRN (09:23)
[2018-05-20 10:31] LABS: Anion Gap 17 mmol/L (10-20); BUN (Urea Nitrogen) 27 mg/dL (9.8-20.1); Calc. Creatinine Clearance 44 mL/min (70-130); Calcium 8.4 mg/dL (7.8-10.44); Carbon Dioxide 28 mmol/L (23-31); Chloride 93 mmol/L (98-107); Estimated GFR-MDRD 69; Glucose 117 mg/dL (83-110); Potassium 5.1 mmol/L (3.5-5.1); Sodium 133 mmol/L (136-145)
--- NOTE | 2018-05-20 10:58 | PDOC.PN ---
- Subjective Encounter Start Date: 05/20/18 Encounter Start Time: 10:56 Pt seen for followup re: acute hypoxic respiratory failure. Feels better. - Objective MAR Reviewed: Yes Vital Signs & Weight: Vital Signs (12 hours) Temp Pulse Resp BP Pulse Ox 05/20/18 10:47 88 18 95 05/20/18 07:55 89 05/20/18 07:54 89 05/20/18 07:48 96.9 F L 89 16 99/55 L 96 05/20/18 07:30 86 18 100 05/20/18 05:07 97.1 F L 89 14 100/51 L 99 05/20/18 02:48 94 18 92 L 05/19/18 23:29 98.4 F 97 18 136/82 94 L 05/19/18 23:23 99 18 92 L Weight Weight 108 lb 1.6 oz I&O: 05/19/18 05/20/18 05/21/18 06:59 06:59 06:59 Intake Total 240 240 Output Total 350 Balance 240 -110 Result Diagrams: 05/18/18 19:11 05/20/18 10:11 EKG Reviewed by me: Yes (Tele: NSR) Phys Exam - Physical Examination Malnourished HEENT: moist MMs, sclera anicteric, oral pharynx no lesions, 2+ tonsils Neck: no nodes, no JVD, supple, full ROM Decreased air entry R base Cardiovascular: RRR, no rub S1, S2 Gastrointestinal: soft, non-tender, no distention, positive bowel sounds Musculoskeletal: edema present Neurological: moves all 4 limbs Psychiatric: normal affect, A&O x 3 Dx/Plan (1) Acute respiratory failure with hypoxia Code(s): J96.01 - ACUTE RESPIRATORY FAILURE WITH HYPOXIA Status: Acute Comment: secondary to pleural effusion (2) Pleural effusion Code(s): J90 - PLEURAL EFFUSION, NOT ELSEWHERE CLASSIFIED Status: Acute Comment: malignant effusion vs. CHF (3) Acute on chronic diastolic congestive heart failure, NYHA class 3 Code(s): I50.33 - ACUTE ON CHRONIC DIASTOLIC (CONGESTIVE) HEART FAILURE Status : Acute Comment: continue furosemide for NYHA Stage 3, ACC/AHA Class C (4) Chronic atrial fibrillation Code(s): I48.2 - CHRONIC ATRIAL FIBRILLATION Status: Chronic Comment: Eliquis on hold, pt is on aspirin - Plan * . Review of Systems - Review of Systems Constitutional: negative: fever, chills, sweats, weakness, malaise Respiratory: negative: Cough, Shortness of Breath, SOB with Excertion, Pleuritic Pain, Wheezing Cardiovascular: negative: chest pain, palpitations, orthopnea, paroxysmal nocturnal dyspnea, edema, light headedness Gastrointestinal: negative: Nausea, Vomiting, Abdominal Pain, Diarrhea, Constipation, Melena, Hematochezia Genitourinary: negative: Dysuria, Frequency, Incontinence, Hematuria, Retention Skin: negative: Rash, Lesions, Osbaldo, Bruising - Medications/Allergies Allergies/Adverse Reactions: Allergies Allergy/AdvReac Type Severity Reaction Status Date / Time hydrochlorothiazide Allergy Verified 04/27/18 18:17 [From Maxzide] Nitrofuran Analogues Allergy Verified 04/27/18 18:17 triamterene [From Maxzide] Allergy Verified 04/27/18 18:17 Medications: Current Medications Albuterol/Ipratropium (Duoneb) 3 ml NEB T4AM-SH [facility] Last Admin: 05/20/18 10:47 Dose: 3 ml Aspirin (Ecotrin) 81 mg PO DAILY [facility] Last Admin: 05/20/18 07:54 Dose: 81 mg Calcium/Vitamin D (Caltrate 600 + Vit D) 1 tab PO DAILY [facility] Last Admin: 05/20/18 07:54 Dose: 1 tab Carvedilol (Coreg) 25 mg PO BID [facility] Last Admin: 05/20/18 07:54 Dose: 25 mg Digoxin (Lanoxin) 0.125 mg PO DAILY [facility] Last Admin: 05/20/18 07:54 Dose: 0.125 mg Furosemide (Lasix) 40 mg PO DAILY-AC [facility] Last Admin: 05/20/18 07:54 Dose: 40 mg Lisinopril (Zestril) 5 mg PO DAILY [facility] Last Admin: 05/20/18 07:55 Dose: Not Given Polyethylene Glycol (Miralax) 17 gm PO DAILY PRN PRN Reason: Constipation Sodium Chloride (Flush - Normal Saline) 10 ml IVF PRN PRN PRN Reason: Saline Flush
--- NOTE | 2018-05-20 11:03 | PRG ---
DATE OF SERVICE: 05/20/2018 SUBJECTIVE: She is sitting up in bed, having her hair done by family member. She says she is breathing better. OBJECTIVE: VITAL SIGNS: On exam, temperature is 96.9, pulse 89, respirations 16, O2 saturation 96% on 2 L, and blood pressure 99/55. HEENT: Unremarkable. NECK: No JVD. LUNGS: She has diminished breath sounds on the right compared to left. CARDIAC: S1 and S2, regular. ABDOMEN: Soft. EXTREMITIES: No edema. LABORATORY DATA: The pleural fluid showed a lymphocytic exudate. Her sodium is 133, potassium 5.1, BUN 27, creatinine 0.8, and glucose 117. 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 She did not get re-expansion of her lung after thoracentesis. RECOMMENDATION: I will repeat her x-ray tomorrow. We are awaiting cytology. If this does come back malignant, then treatment options are fairly limited. I would encourage consultation with her Oncology Team. Job ID: [id number]
[2018-05-20 13:24] LABS: #Lymphocytes 0.7 thou/uL (1.20-3.40); #Monocytes 0.2 thou/uL (0.11-0.59); #Neutrophils 5.2 thou/uL (1.40-6.50); %Eosinophils 0.5 % (0.0-10.0); %Lymphocytes 11.1 % (21.0-51.0); %Monocytes 3.9 % (0.0-10.0); %Neutrophils 84.5 % (42.0-75.0); Hemoglobin 10.3 g/dL (12.0-16.0); MDiff Complete? YES; Mean Corpuscular HGB CONC 31.3 g/dL (32.0-36.0); Mean Corpuscular Volume 89.6 fL (78.0-98.0); Mean Platelet Volume 8.2 fL (7.4-10.4); Ovalocytes SLIGHT = 2-5 cells (100X) (0-1/hpf); Platelet Count 59 thou/uL (130-400); Platelet Morphology Comment Appears Decreased; Polychromasia SLIGHT = 2-3 cells (100X) (0-2/hpf); RBC Distribution Width 12.3 % (11.5-14.5); Red Blood Cell (RBC) Count 3.69 mill/uL (4.20-5.40); White Blood Cell (WBC) Count 6.1 thou/uL (4.8-10.8)
--- NOTE | 2018-05-20 15:11 | PDOC.CTH ---
Cardiology Progress Note - Subjective Breathing much better. - Objective Vital Signs Temp Pulse Resp BP Pulse Ox 05/20/18 14:42 71 16 100 05/20/18 12:01 97.6 F 85 18 90/57 L 98 05/20/18 10:47 88 18 95 05/20/18 07:55 89 05/20/18 07:54 89 05/20/18 07:48 96.9 F L 89 16 99/55 L 96 05/20/18 07:30 86 18 100 05/20/18 05:07 97.1 F L 89 14 100/51 L 99 Admit Weight 108 lb 1.6 oz Weight 108 lb 1.6 oz 05/19/18 05/20/18 05/21/18 06:59 06:59 06:59 Intake Total 240 240 Output Total 350 Balance 240 -110 - Physical Examination General/Neuro: alert & oriented x3, NAD Neck: no JVD present Lungs: unlabored respirations Heart: other: (Irreg Irreg) Abdomen: NT/ND Extremities: other: (no edema.) - Telemetry Telemetry Rhythm: Afib HR 100's. - Labs Result Diagrams: 05/20/18 13:03 05/20/18 10:11 Troponin/CKMB CK-MB (CK-2) 4.6 ng/mL (0-6.6) 05/19/18 02:10 Troponin I 0.038 ng/mL (< 0.028) H 05/19/18 02:10 - Assessment/Plan 1. Large right sided pleural effusion 2. S/P Thoracenthesis. 3 3. Large pneumothorax after thoracenthesis. 4. Chronic afib 5. Ovarian carcinoma. PALN: - Continue with single dose daily lasix. - Echo pending. - Continue to hold anticoagulation as she may need a chest tube for her pneumothorax if lung does not expand further.
[2018-05-21] MEDS: diphenhydrAMINE 25 MG CAP PO PRN ×2 (00:23→22:34)
[2018-05-21 05:50] LABS: #Eosinphils 0.1 thou/uL (0.0-0.7); #Lymphocytes 0.9 thou/uL (1.20-3.40); #Monocytes 0.2 thou/uL (0.11-0.59); %Basophils 0.6 % (0.0-1.0); %Eosinophils 1.3 % (0.0-10.0); %Lymphocytes 16.7 % (21.0-51.0); %Monocytes 4.6 % (0.0-10.0); %Neutrophils 76.8 % (42.0-75.0); Hemoglobin 9.4 g/dL (12.0-16.0); Mean Corpuscular HGB CONC 30.3 g/dL (32.0-36.0); Mean Corpuscular Hemoglobin 27.5 pg (27.0-31.0); Mean Corpuscular Volume 90.5 fL (78.0-98.0); Mean Platelet Volume 8.7 fL (7.4-10.4); Platelet Count 51 thou/uL (130-400); RBC Distribution Width 12.4 % (11.5-14.5); Red Blood Cell (RBC) Count 3.42 mill/uL (4.20-5.40); White Blood Cell (WBC) Count 5.1 thou/uL (4.8-10.8)
[2018-05-21 06:15] LABS: Anion Gap 8 mmol/L (10-20); BUN (Urea Nitrogen) 27 mg/dL (9.8-20.1); Calc. Creatinine Clearance 53 mL/min (70-130); Calcium 8.2 mg/dL (7.8-10.44); Carbon Dioxide 35 mmol/L (23-31); Chloride 95 mmol/L (98-107); Estimated GFR-MDRD 85; Glucose 106 mg/dL (83-110); Potassium 3.8 mmol/L (3.5-5.1); Sodium 134 mmol/L (136-145)
[2018-05-21] MEDS: Calcium Carbonate + Vit D 1 TAB PO SCH (09:15)
[2018-05-21] MEDS: Digoxin 0.125 MG TAB PO SCH (09:16)
[2018-05-21] MEDS: Carvedilol 25 MG TAB PO SCH ×2 (09:16→20:10)
[2018-05-21] MEDS: Furosemide 40 MG TAB PO SCH (09:16)
--- NOTE | 2018-05-21 09:42 | RAD ---
RADIOGRAPH CHEST 1 VIEW: Date: 05/21/2018. Time: 7:35 a.m. HISTORY: A 77-year-old female with hydropneumothorax, followup. COMPARISON: 05/19/2018, 12:27 p.m. FINDINGS: The right pneumothorax is again visualized. It has become somewhat smaller, estimated to be approxim ately 30 - 40% volume now. There has been reaccumulation of the right pleural effusion, and associat ed airspace opacity of right lung base. There has been interval increase in volume of the contralate ral left pleural effusion, and increased airspace opacity of left lower lobe. No pulmonary edema. L eft subclavian implantable vascular access port remains. IMPRESSION: 1. Right hydropneumothorax. The pneumothorax component has decreased, but the right pleural effusio n volume has increased. 2. Interval increase in volume of left pleural effusion. 3. Interval worsening of aeration of bilateral lower lobes. VITA [] POS: JULIET
--- NOTE | 2018-05-21 12:04 | PDOC.PN ---
- Subjective Encounter Start Date: 05/21/18 Encounter Start Time: 07:20 Pt seen for followup re: acute respiratory failure. Feels okay, no complaints today. - Objective MAR Reviewed: Yes Vital Signs & Weight: Vital Signs (12 hours) Temp Pulse Resp BP BP Pulse Ox 05/21/18 11:41 98.2 F 79 16 105/58 L 97 05/21/18 11:27 93 16 99 05/21/18 09:16 107 H 05/21/18 09:13 107 H 108/57 L 05/21/18 08:01 99 18 96 05/21/18 07:23 97.7 F 103 H 16 116/57 L 98 05/21/18 04:31 98.1 F 85 16 110/55 L 99 05/21/18 03:53 88 18 96 Weight Admit Weight 108 lb 1.6 oz Weight 108 lb 6.4 oz I&O: 05/20/18 05/21/18 05/22/18 06:59 06:59 06:59 Intake Total 240 240 720 Output Total 350 Balance 240 -110 720 Result Diagrams: 05/21/18 04:57 05/21/18 04:57 EKG Reviewed by me: Yes (Tele: jerrell hadley) Phys Exam - Physical Examination Constitutional: NAD HEENT: moist MMs, sclera anicteric, oral pharynx no lesions, 2+ tonsils Neck: no nodes, no JVD, supple, full ROM Decreased air entry R base Cardiovascular: no rub, irregular S1, S2 Gastrointestinal: soft, non-tender, no distention, positive bowel sounds Musculoskeletal: edema present Neurological: moves all 4 limbs Psychiatric: normal affect, A&O x 3 Dx/Plan (1) Acute respiratory failure with hypoxia Code(s): J96.01 - ACUTE RESPIRATORY FAILURE WITH HYPOXIA Status: Acute Comment: Improving, secondary to pleural effusion (2) Pleural effusion Code(s): J90 - PLEURAL EFFUSION, NOT ELSEWHERE CLASSIFIED Status: Acute Comment: malignant effusion vs. CHF. Await cytology. (3) Acute on chronic diastolic congestive heart failure, NYHA class 3 Code(s): I50.33 - ACUTE ON CHRONIC DIASTOLIC (CONGESTIVE) HEART FAILURE Status : Acute Comment: continue furosemide (4) Chronic atrial fibrillation Code(s): I48.2 - CHRONIC ATRIAL FIBRILLATION Status: Chronic Comment: Eliquis on hold, continue aspirin - Plan * . consult oncology re: ovarian cancer Review of Systems - Review of Systems Constitutional: negative: fever, chills, sweats, weakness, malaise Respiratory: negative: Cough, Shortness of Breath, SOB with Excertion, Pleuritic Pain, Wheezing Cardiovascular: negative: chest pain, palpitations, orthopnea, paroxysmal nocturnal dyspnea, edema, light headedness Gastrointestinal: negative: Nausea, Vomiting, Abdominal Pain, Diarrhea, Constipation, Melena, Hematochezia Genitourinary: negative: Dysuria, Frequency, Incontinence, Hematuria, Retention Skin: negative: Rash, Lesions, Osbaldo, Bruising - Medications/Allergies Allergies/Adverse Reactions: Allergies Allergy/AdvReac Type Severity Reaction Status Date / Time hydrochlorothiazide Allergy Verified 04/27/18 18:17 [From Maxzide] Nitrofuran Analogues Allergy Verified 04/27/18 18:17 triamterene [From Maxzide] Allergy Verified 04/27/18 18:17 Medications: Current Medications Albuterol/Ipratropium (Duoneb) 3 ml NEB [id number] [facility] Last Admin: 05/21/18 11:27 Dose: 3 ml Calcium/Vitamin D (Caltrate 600 + Vit D) 1 tab PO DAILY [facility] Last Admin: 05/21/18 09:15 Dose: 1 tab Carvedilol (Coreg) 25 mg PO BID [facility] Last Admin: 05/21/18 09:16 Dose: 25 mg Digoxin (Lanoxin) 0.125 mg PO DAILY [facility] Last Admin: 05/21/18 09:16 Dose: 0.125 mg Diphenhydramine HCl (Benadryl) 25 mg PO HSPRN PRN PRN Reason: Itching & Insomnia Last Admin: 05/21/18 00:23 Dose: 25 mg Furosemide (Lasix) 40 mg PO DAILY-AC [facility] Last Admin: 05/21/18 09:16 Dose: 40 mg Lisinopril (Zestril) 5 mg PO DAILY [facility] Last Admin: 05/20/18 07:55 Dose: Not Given Polyethylene Glycol (Miralax) 17 gm PO DAILY PRN PRN Reason: Constipation Sodium Chloride (Flush - Normal Saline) 10 ml IVF PRN PRN PRN Reason: Saline Flush
[2018-05-21] MEDS: Lisinopril 5 MG TAB PO SCH (13:04)
--- NOTE | 2018-05-21 13:13 | PRG ---
DATE OF SERVICE: 05/21/2018 SUBJECTIVE: She is sitting up, eating, looks better. OBJECTIVE: VITAL SIGNS: Temperature 98.2, pulse 79, respirations 16, O2 saturation 97% on 2 L, and blood pressure 105/58. HEENT: Unremarkable. NECK: No JVD. LUNGS: Diminished breath sounds in the right base compared to left. CARDIAC: S1 and S2, regular. ABDOMEN: Soft. EXTREMITIES: No edema. LABORATORY DATA: White blood cell count 5.1, hematocrit 38.9, and platelet count 51. Sodium 134, potassium 3.8, BUN 27, creatinine 0.6, glucose 106. ASSESSMENT: Right pleural effusion with trapped lung. She has a lymphocytic exudate. PLAN: She is beginning to have reaccumulation on the current chest x-ray that I reviewed today. I do not think her trapped lung has resolved any. We will await the pathology report to come back. I think her Oncology team needs to be involved in her care as this is probably malignancy. Job ID: [id number]
[2018-05-21] MEDS: Simethicone Chewable 80 MG TAB PO PRN (14:59)
--- NOTE | 2018-05-21 17:55 | PDOC.CTH ---
Cardiology Progress Note - Subjective Breathing unchanged from yesterday. - Objective Vital Signs Temp Pulse Resp BP BP Pulse Ox 05/21/18 15:29 90 16 99 05/21/18 14:54 98.1 F 87 16 127/70 05/21/18 11:41 98.2 F 79 16 105/58 L 97 05/21/18 11:27 93 16 99 05/21/18 09:16 107 H 05/21/18 09:13 107 H 108/57 L 05/21/18 08:01 99 18 96 05/21/18 07:23 97.7 F 103 H 16 116/57 L 98 Admit Weight 108 lb 1.6 oz Weight 108 lb 6.4 oz 05/20/18 05/21/18 05/22/18 06:59 06:59 06:59 Intake Total 240 240 720 Output Total 350 Balance 240 -110 720 - Physical Examination General/Neuro: alert & oriented x3, NAD Neck: no JVD present Lungs: unlabored respirations Heart: other: (Irreg) Abdomen: NT/ND Extremities: other: (no edema) - Telemetry Telemetry Rhythm: Afib - Labs Result Diagrams: 05/21/18 04:57 05/21/18 04:57 Troponin/CKMB CK-MB (CK-2) 4.6 ng/mL (0-6.6) 05/19/18 02:10 Troponin I 0.038 ng/mL (< 0.028) H 05/19/18 02:10 - Assessment/Plan 1. Large right sided pleural effusion 2. S/P Thoracenthesis. 3 3. Large pneumothorax after thoracenthesis. 4. Chronic afib 5. Ovarian carcinoma. PALN: - Continue with single dose daily PO lasix at 40 mg. - Echo pending. - Continue to hold anticoagulation as she may need a chest tube for her pneumothorax if lung does not expand further.
[2018-05-22] MEDS: Simethicone Chewable 80 MG TAB PO PRN ×3 (01:42→21:03)
[2018-05-22 05:10] LABS: #Monocytes 0.2 thou/uL (0.11-0.59); #Neutrophils 3.7 thou/uL (1.40-6.50); %Basophils 0.8 % (0.0-1.0); %Eosinophils 0.7 % (0.0-10.0); %Lymphocytes 19.4 % (21.0-51.0); %Monocytes 4.8 % (0.0-10.0); %Neutrophils 74.2 % (42.0-75.0); Hemoglobin 10.6 g/dL (12.0-16.0); Mean Corpuscular HGB CONC 30.8 g/dL (32.0-36.0); Mean Corpuscular Hemoglobin 28.1 pg (27.0-31.0); Mean Corpuscular Volume 91.2 fL (78.0-98.0); Mean Platelet Volume 9.1 fL (7.4-10.4); Platelet Count 39 thou/uL (130-400); RBC Distribution Width 12.4 % (11.5-14.5); Red Blood Cell (RBC) Count 3.78 mill/uL (4.20-5.40)
[2018-05-22 05:27] LABS: BUN (Urea Nitrogen) 28 mg/dL (9.8-20.1); Calc. Creatinine Clearance 51 mL/min (70-130); Calcium 8.8 mg/dL (7.8-10.44); Estimated GFR-MDRD 82; Glucose 118 mg/dL (83-110)
[2018-05-22 05:36] LABS: Anion Gap 19 mmol/L (10-20); Carbon Dioxide 31 mmol/L (23-31); Chloride 92 mmol/L (98-107); Potassium 3.8 mmol/L (3.5-5.1); Sodium 138 mmol/L (136-145)
[2018-05-22] MEDS: Furosemide 40 MG TAB PO SCH (06:30)
[2018-05-22] MEDS: Lisinopril 5 MG TAB PO SCH (08:49)
[2018-05-22] MEDS: Digoxin 0.125 MG TAB PO SCH (08:49)
[2018-05-22] MEDS: Carvedilol 25 MG TAB PO SCH ×2 (08:49→21:03)
[2018-05-22] MEDS: Calcium Carbonate + Vit D 1 TAB PO SCH (08:49)
--- NOTE | 2018-05-22 10:45 | PRG ---
DATE OF SERVICE: 05/22/2018 SUBJECTIVE: The patient is about the same. Had no new complaints. OBJECTIVE: VITAL SIGNS: On exam, temperature 97.7, pulse 90, respirations 20, O2 saturation 95% on 1 L, and blood pressure 124/61. HEENT: Unremarkable. NECK: No JVD. LUNGS: Diminished breath sounds on the right compared to left. CARDIAC: S1, S2. Regular. ABDOMEN: Soft. EXTREMITIES: No edema. 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 RECOMMENDATION: Recommend oncologic consultation. I do not think she is going to be a very good candidate for PleurX catheter based on the fact that her lung did not re-expand after the previous thoracentesis. I will wait to see what the opinion is with the Oncology team. Job ID: [id number]
--- NOTE | 2018-05-22 12:06 | PQF ---
[employer] EVANGEILNA Graves LELANDPAMELA [id number] PRANEETH DUMONT [id number] CLINICAL DOCUMENTATION IMPROVEMENT CLARIFICATION FORM: ICD-10 Updated PLEASE DO AN ADDENDUM TO THE PROGRESS NOTE WITH ANY DOCUMENTATION UPDATES OR ADDITIONS AND CARRY THROUGH TO DC SUMMARY. THANK YOU. Date: 05/22/2018 ATTN: DR. HA Please exercise your independent, professional judgment in responding to the clarification form. Clinical indicators are provided on the bottom of this form for your review Please check appropriate box(s): [ ] Protein Calorie Malnutrition: [ ] Mild [ ] Moderate [ ] Severe [ ] Other Malnutrition (please specify) [ ] Underweight without malnutrition [ ] Cachexia [ ] Other diagnosis [ ] Unable to determine CLINICAL INDICATORS - SIGNS / SYMPTOMS / LABS OVARIAN CARCINOMA ON CHEMO BMI-18.6.... 5-FT, 4-IN AND 108-LBS 05/20-DIET: PT IS THIN WITH LIMITED FAT STORES, NOTED MUSCLE WASTING TO TEMPORALIS MUSCLES, CLAVICLE REGION. 2+ PITTING BLL. UNDERWEIGHT. LIKELY NOT MET KCAL OR PROTEIN GOALS DAILY. SEVERE MALNUTRITION IN THE CONTEXT OF CHRONIC ILLNESS WITH 13.6% WT LOSS OF THE PAST 2 MO. SEVERE MUSCLE WASTING, POOR APPETITE, AND BMI-18.6 RISK FACTORS Inability to consume adequate caloric intake Chronic illness cancer, CHF TREATMENT: Dietary consult Nutritional supplements - ENSURE Moderate Malnutrition (in acute illness) Energy Intake: <75% of estimated energy requirement for > 7 days Weight Loss: 1-2%/1 week; 5%/ 1 month; 7.5%/3 months Other: mild body fat loss; mild muscle mass loss; mild fluid accumulation; Severe Malnutrition (in acute illness) Energy Intake: < 50% of estimated energy requirement for > 5 days Weight Loss: >1-2%/1 week; >5%/1 month; >7.5%/3 months Other: moderate body fat loss; moderate muscle mass loss; moderate- severe fluid accumulation; measurably reduced barge captain strength Moderate Malnutrition (in chronic illness) Energy Intake: <75% of estimated energy requirement for >1 month Weight Loss: 5%/1 month; 7.5%/3 months; 10%/6 months; 20%/1 year Other: mild body fat loss; mild muscle mass loss; mild fluid accumulation Severe Malnutrition (in chronic illness) Energy Intake: <75% of estimated energy requirement for >1 month Weight Loss: >5%/1 month; >7.5%/3 months; >10%/6 months; >20%/1 year Other: severe body fat loss; severe muscle mass loss; severe fluid accumulation ; measurably reduced barge captain strength Thank You, Airam (This form is maintained as a part of the permanent medical record) 2015 [employer] All Rights Reserved Airam Love RN, CDIS [email or web address] [phone] [email or web address]
--- NOTE | 2018-05-22 16:04 | PDOC.PN ---
- Subjective Encounter Start Date: 05/22/18 Encounter Start Time: 07:00 Pt seen for followup re: acute hypoxic respiratory failure. Says she feels well. - Objective MAR Reviewed: Yes Vital Signs & Weight: Vital Signs (12 hours) Temp Pulse Resp BP BP Pulse Ox 05/22/18 14:21 95 16 96 05/22/18 11:51 97.8 F 89 18 123/71 96 05/22/18 10:38 85 16 95 05/22/18 08:49 90 05/22/18 07:40 95 05/22/18 07:29 97.7 F 90 20 124/61 95 05/22/18 06:48 94 L 05/22/18 06:46 87 16 94 L Weight Admit Weight 108 lb 1.6 oz Weight 108 lb 6.4 oz I&O: 05/21/18 05/22/18 05/23/18 06:59 06:59 06:59 Intake Total 240 1440 Output Total 350 Balance -110 1440 Result Diagrams: 05/22/18 04:30 05/22/18 04:30 EKG Reviewed by me: Yes (Tele: jerrell hadley) Phys Exam - Physical Examination Constitutional: NAD HEENT: moist MMs Neck: supple Respiratory: clear to auscultation bilateral Decreased air entry right base Cardiovascular: RRR Gastrointestinal: soft Neurological: moves all 4 limbs Psychiatric: normal affect Dx/Plan (1) Acute respiratory failure with hypoxia Code(s): J96.01 - ACUTE RESPIRATORY FAILURE WITH HYPOXIA Status: Acute Comment: Improving (2) Pleural effusion Code(s): J90 - PLEURAL EFFUSION, NOT ELSEWHERE CLASSIFIED Status: Acute Comment: malignant effusion. Oncology consulted. (3) Chronic atrial fibrillation Code(s): I48.2 - CHRONIC ATRIAL FIBRILLATION Status: Chronic Comment: continue aspirin (4) Chronic diastolic CHF (congestive heart failure), NYHA class 3 Code(s): I50.32 - CHRONIC DIASTOLIC (CONGESTIVE) HEART FAILURE Status: Chronic Comment: continue furosemide (5) Protein-calorie malnutrition, moderate Code(s): E44.0 - MODERATE PROTEIN-CALORIE MALNUTRITION Status: Chronic Comment: appreciate dietitian input (6) Acute on chronic diastolic congestive heart failure, NYHA class 3 Code(s): I50.33 - ACUTE ON CHRONIC DIASTOLIC (CONGESTIVE) HEART FAILURE Status : Ruled-out - Plan PT/OT * . Review of Systems - Review of Systems Respiratory: negative: Cough, Shortness of Breath, SOB with Excertion, Pleuritic Pain, Wheezing Cardiovascular: negative: chest pain, palpitations, orthopnea, paroxysmal nocturnal dyspnea, edema, light headedness - Medications/Allergies Allergies/Adverse Reactions: Allergies Allergy/AdvReac Type Severity Reaction Status Date / Time hydrochlorothiazide Allergy Verified 04/27/18 18:17 [From Maxzide] Nitrofuran Analogues Allergy Verified 04/27/18 18:17 triamterene [From Maxzide] Allergy Verified 04/27/18 18:17 Medications: Current Medications Albuterol/Ipratropium (Duoneb) 3 ml NEB [id number] [facility] Last Admin: 05/22/18 14:21 Dose: 3 ml Calcium/Vitamin D (Caltrate 600 + Vit D) 1 tab PO DAILY [facility] [place] Last Admin: 05/22/18 08:49 Dose: 1 tab Carvedilol (Coreg) 25 mg PO BID [facility] [place] Last Admin: 05/22/18 08:49 Dose: 25 mg Digoxin (Lanoxin) 0.125 mg PO DAILY [facility] [place] Last Admin: 05/22/18 08:49 Dose: 0.125 mg Diphenhydramine HCl (Benadryl) 25 mg PO HSPRN PRN PRN Reason: Itching & Insomnia Last Admin: 05/21/18 22:34 Dose: 25 mg Furosemide (Lasix) 40 mg PO DAILY-AC [facility] [place] Last Admin: 05/22/18 06:30 Dose: 40 mg Lisinopril (Zestril) 5 mg PO DAILY [facility] [place] Last Admin: 05/22/18 08:49 Dose: 5 mg Polyethylene Glycol (Miralax) 17 gm PO DAILY PRN PRN Reason: Constipation Simethicone (Mylicon Chewable) 80 mg PO BIDPRN PRN PRN Reason: Indigestion Last Admin: 05/22/18 06:30 Dose: 80 mg Sodium Chloride (Flush - Normal Saline) 10 ml IVF PRN PRN PRN Reason: Saline Flush
--- NOTE | 2018-05-22 17:47 | PRG ---
DATE OF SERVICE: SUBJECTIVE: The patient is feeling better. She continues to have shortness of breath. She continues to appear weak. She recently had thoracentesis. The thoracentesis was felt to be cloudy and red in color with significant amounts of red blood cells. OBJECTIVE: VITAL SIGNS: Blood pressure 129/76, pulse 98, and temperature 97.6. LUNGS: Decreased breath sounds, left versus right. HEART: Regular rate and rhythm. ABDOMEN: Soft, nontender, nondistended. EXTREMITIES: No edema. PERTINENT LABORATORY DATA: Hemoglobin 10.6, white blood cell count 5.0. IMPRESSION: 1. Atrial fibrillation. 2. Ovarian cancer. 3. Shortness of breath. RECOMMENDATIONS: Certainly concerning that the most recent thoracentesis did suggest a bloody fluid. The culture and cytology are currently pending. At this point, we will continue with rate control. Heart rate appears to be in the 80s to 90s. She is currently on carvedilol, we will continue. Otherwise, I have no further recommendations. Job ID: [id number]
--- NOTE | 2018-05-22 23:25 | CON ---
DATE OF CONSULTATION: REASON FOR CONSULTATION: Ovarian cancer. HISTORY OF PRESENT ILLNESS: Ms. Montiel is a 77-year-old female, who was diagnosed with serous adenocarcinoma of the ovary in 2012. She saw Dr. Lino in the [facility], who did omental biopsy. She had a small bowel obstruction in the distal ileum with infarction and necrosis, and was converted to an exploratory laparotomy. She had lysis of adhesions and ileocecal resection with primary reanastomosis. The biopsy showed a high-grade carcinoma of gynecological origin consistent with serous carcinoma. She saw Dr. Hutchins in the office, who ordered a CT scan, which showed liver metastasis and a primary left ovarian mass. The patient was readmitted shortly thereafter for atrial fibrillation and RVR. She had a moderate size left pleural effusion at that time. She was started on diuretics. She received her first cycle of chemotherapy with carboplatin on May 08 and actually tolerated it quite well. On the , she began to have significant or worsening shortness of breath and presented to the emergency room for evaluation. She was found to have a large right pleural effusion. Dr. Nevarez saw the patient and performed a thoracentesis with removal of 2 L of fluid. Pathology returned adenocarcinoma consistent with ovarian primary. Unfortunately, the patient's right lung did not re-expand, and since the thoracentesis several days ago, there has been reaccumulation of fluid. We were asked to see the patient regarding prognosis. PAST MEDICAL HISTORY: 1. 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 2. Hypertension. 3. Atrial fibrillation. 4. GERD. PAST SURGICAL HISTORY: 1. Appendectomy. 2. RHEA without oophorectomy. 3. Foot surgery. 4. Exploratory laparotomy with ileocecal resection in March of 2018. ALLERGIES: NO KNOWN DRUG ALLERGIES. HOME MEDICATIONS: 1. Eliquis 2.5 mg b.i.d. 2. Coreg 25 mg b.i.d. 3. MiraLAX p.r.n. 4. Digoxin 0.125 mg daily. 5. Lasix 80 mg b.i.d. 6. Zestril 5 mg daily. 7. K-Dur 40 mEq daily. FAMILY HISTORY: Mother had Hodgkin lymphoma. Sister had breast cancer in her 40s. SOCIAL HISTORY: , has 2 children. Lives with her spouse. No alcohol, tobacco, or illicit drug use. REVIEW OF SYSTEMS: Positive for fatigue, poor appetite, shortness of breath, cough, and weakness. PHYSICAL EXAMINATION: VITAL SIGNS: Temperature is 97.8, pulse is 95, respiratory rate 16, blood pressure is 123/71. She is 96% on 1 L. GENERAL: This is a frail female in no acute distress. HEENT: Normocephalic and atraumatic. Pupils equal and reactive to light. NECK: Supple. CV: Regular rate and rhythm. LUNGS: Clear anterior. ABDOMEN: Soft, nontender. She has a midline scar, which is healed. EXTREMITIES: No clubbing, cyanosis, or edema. SKIN: No rash. HEMATOLOGIC: No petechiae or purpura. NEUROLOGIC: Nonfocal. PSYCH: The patient is alert, oriented, and appropriate. PERTINENT LABORATORY DATA AND X-RAYS: Current WBCs 5.0, hemoglobin 10.6, hematocrit 34.4, platelet count is 39,000, 74% neutrophils, 19% lymphocytes. Sodium is 138, potassium 3.8, chloride 92, CO2 is 31, BUN is 28, creatinine 0.69, calcium 8.8. Total bilirubin is 0.7, AST is 40, ALT is 40, alkaline phosphatase is 115. Troponin is 0.038. Serum total protein is 6.4, albumin 3.3, globulin 3.1. BNP is 323.8. Radiology per HPI. ASSESSMENT: 1. Stage IV ovarian cancer. 2. Malignant pleural effusion. DISCUSSION: The patient was informed of the adenocarcinoma found in her pleural fluid. We had a discussion about whether she would be able to tolerate any further chemotherapy. We also discussed hospice options. Her daughters were not present in the room during this discussion. Her was present. We will continue the discussions further tomorrow. Dr. Hutchins has been updated and will follow. Continue supportive care at this time. Thank you for the consult. Job ID: [id number]
[2018-05-23] MEDS ORDERED: Lorazepam 0.5 MG TAB PO SCH (00:30)
[2018-05-23 05:29] LABS: #Monocytes 0.2 thou/uL (0.11-0.59); #Neutrophils 3.1 thou/uL (1.40-6.50); %Basophils 0.7 % (0.0-1.0); %Eosinophils 0.2 % (0.0-10.0); %Lymphocytes 23.4 % (21.0-51.0); %Monocytes 4.5 % (0.0-10.0); %Neutrophils 71.2 % (42.0-75.0); Hemoglobin 10.7 g/dL (12.0-16.0); Mean Corpuscular HGB CONC 31.7 g/dL (32.0-36.0); Mean Corpuscular Hemoglobin 28.6 pg (27.0-31.0); Mean Platelet Volume 10.1 fL (7.4-10.4); Platelet Count 30 thou/uL (130-400); RBC Distribution Width 12.6 % (11.5-14.5); Red Blood Cell (RBC) Count 3.75 mill/uL (4.20-5.40); White Blood Cell (WBC) Count 4.4 thou/uL (4.8-10.8)
[2018-05-23 05:42] LABS: Anion Gap 18 mmol/L (10-20); BUN (Urea Nitrogen) 30 mg/dL (9.8-20.1); Calc. Creatinine Clearance 45 mL/min (70-130); Calcium 9.2 mg/dL (7.8-10.44); Carbon Dioxide 35 mmol/L (23-31); Chloride 89 mmol/L (98-107); Estimated GFR-MDRD 70; Glucose 117 mg/dL (83-110); Potassium 4.3 mmol/L (3.5-5.1); Sodium 138 mmol/L (136-145)
[2018-05-23] MEDS: Ondansetron ODT 4 MG TAB PO PRN ×2 (08:11→14:13)
[2018-05-23] MEDS: Simethicone Chewable 80 MG TAB PO PRN (08:11)
[2018-05-23] MEDS: Lisinopril 5 MG TAB PO SCH (08:27)
[2018-05-23] MEDS: Furosemide 40 MG TAB PO SCH (08:27)
[2018-05-23] MEDS: Carvedilol 25 MG TAB PO SCH ×2 (08:27→21:01)
--- NOTE | 2018-05-23 09:16 | PRG ---
DATE OF SERVICE: 05/23/2018 SUBJECTIVE: The patient's cytology report came back with adenocarcinoma. She is very depressed about that. OBJECTIVE: VITAL SIGNS: Temperature 97.4, pulse 99, respirations 18, O2 saturation 95%, and blood pressure 89/57. HEENT: Unremarkable. NECK: No JVD. LUNGS: Diminished breath sounds in the right base. CARDIAC: S1, S2. Regular. ABDOMEN: Somewhat protuberant. EXTREMITIES: No edema. LABORATORY DATA: White count is 4.4, hematocrit 33.8, and platelet count 30. Sodium 138, potassium 4.3, chloride 89, CO2 of 35, BUN 30, creatinine 0.7 glucose 117. ASSESSMENT: 1. Malignant pleural effusion. 2. Metastatic adenocarcinoma. PLAN: It is somewhat unrealistic to believe that this lady is going to improve functional status to the point where she can have chemotherapy. I think her prognosis is very poor and that hospice would be the best course to pursue. I doubt that she is a candidate for PleurX catheter at the current time given that her lung did not re-expand after thoracentesis. Job ID: [id number]
[2018-05-23] MEDS: Digoxin 0.125 MG TAB PO SCH (10:04)
[2018-05-23] MEDS: Calcium Carbonate + Vit D 1 TAB PO SCH (10:10)
--- NOTE | 2018-05-23 13:32 | PDOC.PN ---
- Subjective Encounter Start Date: 05/23/18 Encounter Start Time: 12:00 Pt seen for followup re: acute hypoxic respiratory failure. Reports heartburn. - Objective MAR Reviewed: Yes Vital Signs & Weight: Vital Signs (12 hours) Temp Pulse Resp BP Pulse Ox 05/23/18 08:27 99 05/23/18 08:07 97.4 F L 99 18 89/57 L 95 05/23/18 08:05 95 05/23/18 07:33 98 05/23/18 07:32 100 20 98 05/23/18 04:18 98.1 F 90 16 88/54 L 95 Weight Admit Weight 108 lb 1.6 oz Weight 108 lb 6.4 oz I&O: 05/22/18 05/23/18 05/24/18 06:59 06:59 06:59 Intake Total 1440 300 Balance 1440 300 Result Diagrams: 05/23/18 04:49 05/23/18 04:49 EKG Reviewed by me: Yes (Tele; a. fib) Phys Exam - Physical Examination Constitutional: NAD HEENT: moist MMs Neck: supple Decreased air entry R base Cardiovascular: irregular Gastrointestinal: soft Neurological: moves all 4 limbs Psychiatric: normal affect Dx/Plan (1) Acute respiratory failure with hypoxia Code(s): J96.01 - ACUTE RESPIRATORY FAILURE WITH HYPOXIA Status: Acute Comment: Due to pleural effusion (2) Pleural effusion Code(s): J90 - PLEURAL EFFUSION, NOT ELSEWHERE CLASSIFIED Status: Acute Comment: malignant effusion. Seen by oncology, palliative care to see pt. (3) Chronic atrial fibrillation Code(s): I48.2 - CHRONIC ATRIAL FIBRILLATION Status: Chronic Comment: on aspirin (4) Chronic diastolic CHF (congestive heart failure), NYHA class 3 Code(s): I50.32 - CHRONIC DIASTOLIC (CONGESTIVE) HEART FAILURE Status: Chronic Comment: on furosemide (5) Protein-calorie malnutrition, moderate Code(s): E44.0 - MODERATE PROTEIN-CALORIE MALNUTRITION Status: Chronic Comment: appreciate dietitian input (6) Acute on chronic diastolic congestive heart failure, NYHA class 3 Code(s): I50.33 - ACUTE ON CHRONIC DIASTOLIC (CONGESTIVE) HEART FAILURE Status : Ruled-out - Plan * . Review of Systems - Review of Systems Cardiovascular: negative: chest pain, palpitations, orthopnea, paroxysmal nocturnal dyspnea, edema, light headedness Gastrointestinal: negative: Nausea, Vomiting, Abdominal Pain, Diarrhea, Constipation, Melena, Hematochezia - Medications/Allergies Allergies/Adverse Reactions: Allergies Allergy/AdvReac Type Severity Reaction Status Date / Time hydrochlorothiazide Allergy Verified 04/27/18 18:17 [From Maxzide] Nitrofuran Analogues Allergy Verified 04/27/18 18:17 triamterene [From Maxzide] Allergy Verified 04/27/18 18:17 Medications: Current Medications Albuterol/Ipratropium (Duoneb) 3 ml NEB [id number] [facility] Last Admin: 05/23/18 11:04 Dose: Not Given Calcium/Vitamin D (Caltrate 600 + Vit D) 1 tab PO DAILY [facility] Last Admin: 05/23/18 10:10 Dose: Not Given Carvedilol (Coreg) 25 mg PO BID [facility] Last Admin: 05/23/18 08:27 Dose: Not Given Digoxin (Lanoxin) 0.125 mg PO DAILY [facility] Last Admin: 05/23/18 10:04 Dose: 0.125 mg Diphenhydramine HCl (Benadryl) 25 mg PO HSPRN PRN PRN Reason: Itching & Insomnia Last Admin: 05/21/18 22:34 Dose: 25 mg Furosemide (Lasix) 40 mg PO DAILY-AC [facility] Last Admin: 05/23/18 08:27 Dose: Not Given Lisinopril (Zestril) 5 mg PO DAILY [facility] Last Admin: 05/23/18 08:27 Dose: Not Given Ondansetron HCl (Zofran Odt) 4 mg PO Q6H PRN PRN Reason: Nausea/Vomiting Last Admin: 05/23/18 08:11 Dose: 4 mg Polyethylene Glycol (Miralax) 17 gm PO DAILY PRN PRN Reason: Constipation Simethicone (Mylicon Chewable) 80 mg PO BIDPRN PRN PRN Reason: Indigestion Last Admin: 05/23/18 08:11 Dose: 80 mg Sodium Chloride (Flush - Normal Saline) 10 ml IVF PRN PRN PRN Reason: Saline Flush
[2018-05-23] MEDS ORDERED: Lidocaine 2% Viscous Solution 10 ML, Aluminum & Magnesium Hydroxide 30 ML SSW PRN (13:37)
[2018-05-23 14:18] VITALS: BMI 18.6
[2018-05-23] MEDS ORDERED: Sodium Chloride 0.9% 250 ML IV SCH ×2 (16:30→16:45)
--- NOTE | 2018-05-24 00:34 | CON ---
DATE OF CONSULTATION: 05/23/2018 REASON FOR CONSULTATION: Metastatic ovarian cancer. HISTORY OF PRESENT ILLNESS: Please see nurse practitioner, Anabelle Johnson's consult note for full consultation. In brief, the patient is a 77-year-old female with recently diagnosed serous adenocarcinoma of the ovary, status post one cycle of single agent carboplatin on May 08, presenting to the hospital with shortness of breath. The patient was initially thought to have limited stage IIIC disease. However, prior to treatment had a CAT scan that showed liver metastasis and a small pleural effusion. The patient has since received one dose of chemotherapy and then presented to the hospital with shortness of breath and found to have atrial fibrillation with RVR as well. She was evaluated by Dr. Nevarez and had thoracentesis with removal of 2 L of fluid and pathology returned confirming adenocarcinoma in the fluid, consistent with malignant pleural effusion. The patient's right lung did not re-expand after thoracentesis and there has been reaccumulation of fluid. The patient states that her shortness of breath has improved since the fluid was removed, and at rest, her shortness of breath is very mild. Her appetite is extremely poor. However, she only has mild nausea and no vomiting or diarrhea. She states she simply does not feel like eating. The daughters are encouraging her to eat. However, this has not helped. I had a discussionwith the patient and her family at bedside regarding prognosis of metastatic ovarian cancer with a prognosis of likely only a few months without treatment and possibly 2+ years with treatment. Unfortunately, at this time, the patient's performance status is too poor for chemotherapy at this time. Chemotherapy could shrink her disease. However, I am reluctant to continue treatment unless her strength improves, which is unlikely at this time. I discussed with them that if she does not improve, that hospice would be the best option for her. The patient herself is unclear what she wants to do at this time; however, her daughters are open to hospice. Palliative Care has been consulted and we will follow up their recommendations as well. Dr. Nevarez does not believe the Pleurx catheter would benefit this patient since her lung did not expand after thoracentesis. I recommended to the patient to discuss palliative options with palliative care including nutrition and appetite stimulation and encourage followup with Physical Therapy to attempt to improve patient's performance status. If her symptoms do not improve over the next few days, that I would recommend hospice at that time. We will continue to follow this patient with you while she is in the hospital. Job ID: [id number] CHANTAL
[2018-05-24] MEDS: Simethicone Chewable 80 MG TAB PO PRN (04:05)
[2018-05-24] MEDS: Ondansetron ODT 4 MG TAB PO PRN ×2 (04:05→08:51)
[2018-05-24] MEDS ORDERED: traMADol HCl 50 MG TAB PO PRN (07:58)
[2018-05-24] MEDS: Furosemide 40 MG TAB PO SCH (08:09)
[2018-05-24 09:13] LABS: #Lymphocytes 0.9 thou/uL (1.20-3.40); #Monocytes 0.2 thou/uL (0.11-0.59); #Neutrophils 2.2 thou/uL (1.40-6.50); %Eosinophils 0.2 % (0.0-10.0); %Lymphocytes 26.5 % (21.0-51.0); %Monocytes 5.8 % (0.0-10.0); %Neutrophils 67.6 % (42.0-75.0); Mean Corpuscular HGB CONC 30.7 g/dL (32.0-36.0); Mean Corpuscular Hemoglobin 27.6 pg (27.0-31.0); Mean Platelet Volume 10.8 fL (7.4-10.4); Platelet Count 32 thou/uL (130-400); RBC Distribution Width 12.8 % (11.5-14.5); Red Blood Cell (RBC) Count 4.35 mill/uL (4.20-5.40); White Blood Cell (WBC) Count 3.2 thou/uL (4.8-10.8)
--- NOTE | 2018-05-24 09:42 | PRG ---
DATE OF SERVICE: 05/24/2018 SUBJECTIVE: The patient had code evelyn called early this morning for hypotension. The hypotension has responded to fluid. OBJECTIVE: VITAL SIGNS: Temperature 97.7, pulse 99, respirations 20, O2 saturations 94%, blood pressure 110/69. HEENT: Unremarkable. NECK: No JVD. LUNGS: She has diminished breath sounds in the right base compared to left. CARDIAC: S1 and S2 regular. ABDOMEN: Soft. EXTREMITIES: No edema. ASSESSMENT: 1. Metastatic ovarian cancer. 2. Severe debilitation. 3. 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 RECOMMENDATION: From what I have ascertained, reading literature, and talking with consulting physicians, I do not think a PleurX catheter would be helpful in management of this patient. It sounds like she is not a candidate for chemotherapy based on her debilitated state. I would recommend that the primary team or palliative care have discussions with the patient about DNR status and hospice type care. Nothing further to add at this point. Job ID: [id number]
--- NOTE | 2018-05-24 09:47 | PRG ---
DATE OF SERVICE: 05/23/2018 TIME: 1300 hours. SUBJECTIVE: Ms. Montiel is up to the chair. She is resting comfortably. Her blood pressure dropped significantly this morning and therefore, her lisinopril, Coreg, and Lasix were held. She states at this time she has not had any dizziness or near syncope. Her family is at bedside and discussing rehab placement awaiting palliative care. Her telemetry is remained stable. OBJECTIVE: GENERAL: She is alert, awake, and oriented x3. VITAL SIGNS: Stable. O2 sats around 94%. Last blood pressure reported 95/50. Pulse is 97. HEENT: Head is atraumatic and normocephalic. Mucous membranes are moist. NECK: Supple. No JVD or bruits noted. CHEST: Decreased breath sounds bilaterally, left greater than right. CARDIOVASCULAR: Irregular rate and rhythm. ABDOMEN: Soft. EXTREMITIES: Showed no clubbing, cyanosis, or edema. LABORATORY DATA: Reviewed. IMPRESSION: 1. Malignant pleural effusion, status post left thoracentesis. 2. Advanced ovarian cancer. 3. Diastolic dysfunction. 4. Persistent atrial fibrillation. PLAN: At this time, Ms. Montiel remains very frail. The family is awaiting for palliative care, but not relieved in the hospice at this point. We discussed in rehab the risks of nursing placement as an outpatient, which the patient is concerning that the family wants and we will request the case management. From an atrial fibrillation standpoint, her rate is controlled. She remains on digoxin. Her Eliquis was held prior to thoracentesis, and we will discuss resuming this medication in the near future. Probably need to decrease her blood pressure medications, which prevent hypotension. Encouraged her to increase her nutrition. Further recommendations are pending hospital course. Job ID: [id number]
[2018-05-24 10:04] LABS: Anion Gap 19 mmol/L (10-20); BUN (Urea Nitrogen) 55 mg/dL (9.8-20.1); Calc. Creatinine Clearance 29 mL/min (70-130); Calcium 10.1 mg/dL (7.8-10.44); Carbon Dioxide 33 mmol/L (23-31); Chloride 89 mmol/L (98-107); Estimated GFR-MDRD 42; Glucose 182 mg/dL (83-110); Potassium 4.7 mmol/L (3.5-5.1); Sodium 136 mmol/L (136-145)
[2018-05-24] MEDS: Calcium Carbonate + Vit D 1 TAB PO SCH (10:23)
[2018-05-24] MEDS: Digoxin 0.125 MG TAB PO SCH (10:24)
[2018-05-24 15:58] VITALS: BP 101/57; TEMP 97.6
--- NOTE | 2018-05-24 17:57 | PDOC.PN ---
- Subjective Encounter Start Date: 05/24/18 Encounter Start Time: 07:40 Pt seen for followup re: acute hypoxic respiratory failure. Had hypotension earlier. Says she is okay now. - Objective Resuscitation Status - Order Detail: 05/24/18 13:41 Resuscitation Status Routine Resuscitation Status: DNAR: NO Resuscitation Discussed with: pt, pt , and their two dtrs MAR Reviewed: Yes Vital Signs & Weight: Vital Signs (12 hours) Temp Pulse Pulse Pulse Pulse Pulse Pulse 05/24/18 15:35 97.6 F 96 05/24/18 14:02 99 05/24/18 11:20 97.4 F L 99 05/24/18 10:05 107 H 05/24/18 08:36 112 H 102 H 110 H 110 H 107 H 05/24/18 07:15 97.7 F 99 05/24/18 06:50 98 Resp Resp Resp Resp Resp Resp BP 05/24/18 15:35 17 05/24/18 14:02 20 05/24/18 11:20 18 05/24/18 10:05 20 05/24/18 08:36 18 18 18 18 18 84/48 L 05/24/18 07:15 20 05/24/18 06:50 16 BP BP BP BP BP Pulse Ox Pulse Ox 05/24/18 15:35 101/57 L 96 05/24/18 14:02 96 05/24/18 11:20 92/58 L 98 05/24/18 10:05 93 L 05/24/18 08:36 108/66 100/66 105/61 100/65 92 L 05/24/18 07:15 118/69 94 L 05/24/18 06:50 93 L Pulse Ox Pulse Ox 05/24/18 15:35 05/24/18 14:02 05/24/18 11:20 05/24/18 10:05 05/24/18 08:36 95 97 05/24/18 07:15 05/24/18 06:50 Weight Admit Weight 108 lb 1.6 oz Weight 108 lb 6.4 oz I&O: 05/23/18 05/24/18 05/25/18 06:59 06:59 06:59 Intake Total 300 680 550 Output Total 300 Balance 300 680 250 Result Diagrams: 05/24/18 09:01 05/24/18 09:01 Additional Labs: Accuchecks 05/24/18 08:40 POC Glucose 121 H EKG Reviewed by me: Yes (Tele: jerrell hadley) Phys Exam - Physical Examination malnourished HEENT: moist MMs Neck: supple Respiratory: clear to auscultation bilateral Decreased air entry R base Cardiovascular: irregular Gastrointestinal: soft Musculoskeletal: edema present Neurological: moves all 4 limbs Psychiatric: normal affect Dx/Plan (1) Acute respiratory failure with hypoxia Code(s): J96.01 - ACUTE RESPIRATORY FAILURE WITH HYPOXIA Status: Acute Comment: secondary to malignant pleural effusion (2) Pleural effusion Code(s): J90 - PLEURAL EFFUSION, NOT ELSEWHERE CLASSIFIED Status: Acute Comment: malignant effusion. Plalliative care following, pt likely to go for inpatient hospice (3) Chronic atrial fibrillation Code(s): I48.2 - CHRONIC ATRIAL FIBRILLATION Status: Chronic Comment: on aspirin (4) Chronic diastolic CHF (congestive heart failure), NYHA class 3 Code(s): I50.32 - CHRONIC DIASTOLIC (CONGESTIVE) HEART FAILURE Status: Chronic Comment: on furosemide 40 mg PO daily (5) Protein-calorie malnutrition, moderate Code(s): E44.0 - MODERATE PROTEIN-CALORIE MALNUTRITION Status: Chronic Comment: appreciate dietitian input - Plan * . Blood pressure medications adjusted for symptomatic hypotension Review of Systems - Review of Systems Cardiovascular: light headedness. negative: chest pain, palpitations, orthopnea , paroxysmal nocturnal dyspnea, edema Gastrointestinal: negative: Nausea, Vomiting, Abdominal Pain, Diarrhea, Constipation, Melena, Hematochezia - Medications/Allergies Allergies/Adverse Reactions: Allergies Allergy/AdvReac Type Severity Reaction Status Date / Time hydrochlorothiazide Allergy Verified 04/27/18 18:17 [From Maxzide] Nitrofuran Analogues Allergy Verified 04/27/18 18:17 triamterene [From Maxzide] Allergy Verified 04/27/18 18:17 Medications: Current Medications Albuterol/Ipratropium (Duoneb) 3 ml NEB [id number] [facility] Last Admin: 05/24/18 14:02 Dose: 3 ml Calcium/Vitamin D (Caltrate 600 + Vit D) 1 tab PO DAILY [facility] Last Admin: 05/24/18 10:23 Dose: Not Given Lidocaine HCl 10 ml/ Al (Hydroxide/Mg Hydroxide 30 ml) 0 ml SSW Q8H PRN PRN Reason: chest pain Last Admin: 05/23/18 19:03 Dose: 10 dose Digoxin (Lanoxin) 0.125 mg PO DAILY [facility] Last Admin: 05/24/18 10:24 Dose: 0.125 mg Diphenhydramine HCl (Benadryl) 25 mg PO HSPRN PRN PRN Reason: Itching & Insomnia Last Admin: 05/21/18 22:34 Dose: 25 mg Furosemide (Lasix) 40 mg PO DAILY-[facility] Last Admin: 05/24/18 08:09 Dose: 40 mg Lisinopril (Zestril) 2.5 mg PO DAILY [facility] Ondansetron HCl (Zofran Odt) 4 mg PO Q6H PRN PRN Reason: Nausea/Vomiting Last Admin: 05/24/18 08:51 Dose: 4 mg Polyethylene Glycol (Miralax) 17 gm PO DAILY PRN PRN Reason: Constipation Last Admin: 05/24/18 08:10 Dose: 17 gm Simethicone (Mylicon Chewable) 80 mg PO BIDPRN PRN PRN Reason: Indigestion Last Admin: 05/24/18 04:05 Dose: 80 mg Sodium Chloride (Flush - Normal Saline) 10 ml IVF PRN PRN PRN Reason: Saline Flush Tramadol HCl (Ultram) 50 mg PO Q6H PRN PRN Reason: Pain Last Admin: 05/24/18 08:09 Dose: 50 mg
[2018-05-25] MEDS ORDERED: Lisinopril 2.5 MG TAB PO SCH (09:00)
[2018-05-25] MEDS ORDERED: Lisinopril 5 MG TAB PO SCH (09:00)
--- NOTE | 2018-05-25 10:35 | DIS ---
DATE OF ADMISSION: 05/18/2018 DATE OF DISCHARGE: 05/24/2018 PRIMARY CARE PROVIDER: Dr. Trey Espinoza. DISCHARGE DIAGNOSES: 1. Acute hypoxic respiratory failure. 2. Malignant pleural effusion. 3. Hypotension. 4. Chronic diastolic congestive heart failure, [place] [employer], class III. 5. Moderate protein-calorie malnutrition. CONSULTATIONS DURING THIS HOSPITALIZATION: 1. Cardiology, Dr. Fisher. 2. Oncology, Dr. Hutchins. 3. Pulmonology, Dr. Nevarez. CONDITION OF PATIENT ON THE DAY OF DISCHARGE: Stable. I assessed Ms. Montiel on the day of discharge. She denies any chest pain or shortness of breath. Vital signs are stable. S1 and S2 are heard, irregular. Lungs are clear to auscultation bilaterally, diminished air entry at right base. DISCHARGE MEDICATIONS: These medications are likely to be changed by Hospice Service, but include; 1. Apixaban 2.5 mg 2 times a day. 2. MiraLAX 17 g daily. 3. Caltrate one tablet daily. 4. Digoxin 0.125 mg daily. 5. Lasix 40 mg daily. 6. Lisinopril 2.5 mg daily. 7. K-Dur 40 mEq daily. HOSPITAL COURSE: Ms. Montiel is a pleasant 77-year-old lady, who was admitted to [facility] for acute hypoxic respiratory failure secondary to a large right-sided pleural effusion. She was seen by Pulmonology Service. She underwent thoracentesis. Cytology of the pleural fluid showed adenocarcinoma consistent with ovarian primary. Her stay was also complicated by development of pneumothorax. She was seen by Oncology Service. Palliative Care Service was also involved. After several discussions, the patient and family opted to go with Hospice Service. At the time of this dictation, she is awaiting Hospice Service evaluation for inpatient hospice. Many thanks for allowing me to participate in your the patient's care. Please feel free to contact me with any questions or concerns. DISCHARGE DESTINATION: Inpatient hospice when accepted. TIME SPENT: Total amount of time spent in coordinating this discharge: 31 minutes. Job ID: [id number] MTDD
== END 2018-05-24 20:11 | disposition hospice, inpatient (51) | DRG 754 ==
LOC: ERS 18:37 → ERHOLD 20:17 → 2NO 05-19 15:07
PROVIDERS: ADMIT Emergency Medicine; ATTEND Emergency Medicine
PROC: 0W993ZX Drainage of Right Pleural Cavity, Percutaneous Approach, Diagnostic (ICD-10-PCS; principal; 2018-05-19)
DX: C56.9 Malignant neoplasm of unspecified ovary (principal); J96.01 Acute respiratory failure with hypoxia; I50.33 Acute on chronic diastolic (congestive) heart failure; J91.0 Malignant pleural effusion; E44.0 Moderate protein-calorie malnutrition; Z68.1 Body mass index [BMI] 19.9 or less, adult; J95.811 Postprocedural pneumothorax; Z51.5 Encounter for palliative care; I48.2 Chronic atrial fibrillation; I11.0 Hypertensive heart disease with heart failure; I25.10 Atherosclerotic heart disease of native coronary artery without angina pectoris; K21.9 Gastro-esophageal reflux disease without esophagitis; Z79.01 Long term (current) use of anticoagulants
CPT/HCPCS: 36415; 36416; 71045; 71275; 80048; 80053; 80162; 82150; 82553; 82945; 83615; 83880; 83986; 84157; 84478; 84484; 85025; 85060; 85379; 85610; 85730; 87070; 87116; 87205; 87206; 88112; 88305; 89051; 93005; 93306; 93798; 94640; 94760; 96365; 96366; J1642; J1956; J7620; Q0162; Q0163; Q9966